=== PATIENT | female | born 1955 | race American Indian/Alaskan Native ===

== ENCOUNTER 2016-04-25 05:48 | Emergency (ER) | payer MEDICAID ==
[2016-04-25 06:23] VITALS: O2SAT 97
[2016-04-25] MEDS ORDERED: Oxycodone/Acetaminophen 5/325 mg Tab PO STA (08:01)
--- NOTE | 2016-04-25 08:07 | C.PDOC ---
History Of Present Illness 61 yo female with hx of RA c/o pain in bilateral shoulders, knees, and hands, with swelling to hands. pt stopped her meds for RA 3 weeks ago as a cleanse ( sulfasalazine, methotrexate, folic acid and weaned off prednisone). pt took 2 tabs Aleve last night with no improvement. pt denies fever and chills. Time Seen by Provider: 04/25/16 07:15 Chief Complaint (Nursing): Upper Extremity Problem/Injury History Per: Patient History/Exam Limitations: no limitations Current Symptoms Are (Timing): Still Present Quality: "Pain" Severity: Moderate Past Medical History Reviewed: Historical Data, Nursing Documentation, Vital Signs Vital Signs: Last Vital Signs Temp 97.8 F 04/25/16 06:14 Pulse 92 H 04/25/16 06:14 Resp 18 04/25/16 06:14 BP 155/91 H 04/25/16 06:14 Pulse Ox 97 04/25/16 08:11 - Medical History PMH: Rheumatoid Arthritis Surgical History: No Surg Hx Family History: States: Unknown Family Hx - Social History Hx Tobacco Use: Yes Hx Alcohol Use: Yes Hx Substance Use: No - Immunization History Hx Tetanus Toxoid Vaccination: No Hx Influenza Vaccination: Yes Hx Pneumococcal Vaccination: No Review Of Systems Constitutional: Negative for: Fever, Chills Cardiovascular: Negative for: Chest Pain Respiratory: Negative for: Cough, Shortness of Breath Gastrointestinal: Negative for: Nausea, Vomiting, Abdominal Pain Musculoskeletal: Positive for: Shoulder Pain, Arm Pain, Hand Pain, Other (knee pain) Skin: Negative for: Rash Neurological: Negative for: Weakness, Numbness Physical Exam - Physical Exam Appears: Non-toxic, Other (uncomfortable) Skin: Normal Color, Warm, Dry Head: Atraumatic, Normacephalic Neck: Normal Chest: Symmetrical, No Deformity, No Tenderness Cardiovascular: Rhythm Regular, No Murmur Respiratory: Normal Breath Sounds, No Rales, No Rhonchi, No Wheezing Gastrointestinal/Abdominal: Normal Exam, Bowel Sounds, Soft, No Tenderness Extremity: Other (decreased rom at both shoulders due to pain, b/l shoulder no swelling, no erythema. b/l hands tender to palpation, swelling to left 2nd finger. ) Neurological/Psych: Oriented x3, Normal Speech, Normal Cognition, Normal Motor, Normal Sensation ED Course And Treatment O2 Sat by Pulse Oximetry: 97 Progress Note: pt is feeling much better, able to ambulate. will d/c pt and she will comtact her club room attendant today. Reevaluation Time: 08:49 Medical Decision Making Medical Decision Makin61 y/o female with ra flare after cessation of medication 3 weeks ago. I had long discussion with patient about medication and need to discuss treatment plan with her club room attendant. pt plans to call her today for soonest appointment. Disposition Counseled Patient/Family Regarding: Diagnosis, Need For Followup - Disposition Disposition: HOME/ ROUTINE Disposition Time: 08:49 Condition: IMPROVED Additional Instructions: Please follow up with your club room attendant as soon as possible to discuss treatment options for your arthritis. Return to ER for any worsening symptoms. Forms: General Discharge Instructions, Work Excuse - Clinical Impression Clinical Impression: Flare of rheumatoid arthritis
[2016-04-25] MEDS ORDERED: Oxycodone/Acetaminophen 5/325 mg Tab ONE (08:09)
[2016-04-25 09:24] VITALS: BP 153/96; PULSE 77; RESP 16; TEMP 97.6
== END 2016-04-25 09:21 | disposition home or self-care (01) ==
LOC: C.ER 05:48
DX: M06.9 Rheumatoid arthritis, unspecified (principal)
CPT/HCPCS: 96372; 99285; J1885

== ENCOUNTER 2016-12-22 18:49 | Inpatient (IN) | payer SELFPAY ==
[2016-12-22] MEDS ORDERED: Albuterol-Ipratrop 3 mg / 0.5 (3 ml) UD INH STA (19:35)
[2016-12-22] MEDS ORDERED: Albuterol-Ipratrop 3 mg / 0.5 (3 ml) UD ONE ×2 (19:41→20:15)
[2016-12-22 19:54] LABS: BASO # 0.1 K/uL (0.0-0.2); BASO % 0.3 % (0.0-2.0); EOS # 0.3 K/uL (0.0-0.7); EOS % 1.5 % (0.0-4.0); HEMATOCRIT 42.3 % (34.0-47.0); LYMPH # 1.5 K/uL (1.0-4.3); MEAN CORPUSCULAR HEMOGLOBIN 30.4 pg (27.0-31.0); MEAN CORPUSCULAR HGB CONC 32.7 g/dL (33.0-37.0); MEAN PLATELET VOLUME 7.8 fL (7.2-11.7); MONO # 0.8 K/uL (0.0-0.8); MONO % 3.5 % (0.0-10.0); PLATELET COUNT 223 K/uL (130-400); RED CELL DISTRIBUTION WIDTH 16.8 % (11.5-14.5); WHITE BLOOD COUNT 22.2 K/uL (4.8-10.8)
[2016-12-22 20:14] LABS: ALKALINE PHOSPHATASE 84 U/L (38-126); ALT/SGPT 41 U/L (9-52); AST/SGOT 21 U/L (14-36); BLOOD UREA NITROGEN 12 mg/dL (7-17); CALCIUM 8.5 mg/dl (8.6-10.4); CHLORIDE 96 mmol/L (98-107); GLUCOSE,RANDOM 135 mg/dL (65-105); POTASSIUM 3.8 mmol/L (3.6-5.2)
[2016-12-22] MEDS ORDERED: Albuterol-Ipratrop 3 mg / 0.5 (3 ml) UD INH ONE (20:17)
[2016-12-22 20:24] LABS: ALB/GLOB RATIO 1.6 (1.0-2.1); CARBON DIOXIDE 27 mmol/L (22-30); GFR AFRICAN-AMERICAN > 60; SODIUM 132 mmol/L (132-148); TOTAL PROTEIN 6.4 g/dL (6.3-8.3)
[2016-12-22 20:41] LABS: RBC URINE 1 /hpf (0-3); URINE BILIRUBIN NEGATIVE (NEGATIVE); URINE BLOOD NEGATIVE (NEGATIVE); URINE COLOR Straw (YELLOW); URINE GLUCOSE (UA) NORMAL (Normal); URINE KETONE NEGATIVE (NEGATIVE); URINE LEUKOCYTE ESTERASE NEG Leu/uL (Negative); URINE PROTEIN NEGATIVE (NEGATIVE); URINE UROBILINOGEN NORMAL mg/dL (0.2-1.0); WBC URINE 1 /hpf (0-5)
[2016-12-22 20:58] LABS: EOSINOPHIL 1 % (0-4); NEUTROPHIL 88 % (50-75); TOTAL CELLS COUNTED 100
[2016-12-22] MEDS ORDERED: cefTRIAXone IV 1 gm in Dextros 50 ML IV ONE (21:25)
[2016-12-22] MEDS ORDERED: Azithromycin 500 MG in Sodium Chloride 0.9% 250 ML IV STA (21:25)
[2016-12-22] MEDS ORDERED: Iodixanol 320 MG/ML 100 ML BOTTLE IV ONE (21:48)
[2016-12-22] MEDS ORDERED: cefTRIAXone IV 1 gm in Dextros 50 ML IVPB ONE (22:31)
--- NOTE | 2016-12-22 22:43 | CT ---
EXAM: CT Angiography Chest With Intravenous Contrast CLINICAL HISTORY: 61 years old, female; Signs and symptoms; Cough; Cough with hemorrhage; Additional info: Hemoptysis, ? underlying pe/tb TECHNIQUE: Axial computed tomographic angiography images of the chest with intravenous contrast using pulmonary embolism protocol. All CT scans at this facility use one or more dose reduction techniques, viz.: automated exposure control; ma/kV adjustment per patient size (including targeted exams where dose is matched to indication; i.e. head); or iterative reconstruction technique. MIP reconstructed images were created and reviewed. Coronal and sagittal reformatted images were created and reviewed. CONTRAST: 100 mL of visipaque 320 administered intravenously. COMPARISON: No relevant prior studies available. FINDINGS: Pulmonary arteries: No pulmonary embolism. Aorta: No thoracic aortic aneurysm. Lungs: A paraspinous mass is detected within the right upper lobe (series 4, image 44) measuring 2.5 cm in medial to lateral dimension. An additional groundglass nodule is identified within the left upper lobe measuring 2.6 cm in greatest dimension. A satellite nodule is identified within the left upper lobe measuring 8 mm in greatest dimension (series 4, image 52). Comparison with prior imaging (not provided) is recommended. Pleural spaces: No significant effusion. No pneumothorax. Heart: No cardiomegaly. No significant pericardial effusion. No evidence of right heart dysfunction. Bones: No acute fracture. No lytic or blastic lesions are identified. Lymph nodes: Mediastinal lymphadenopathy is identified. The largest lymph node is within the right hilum measuring 15 mm in short axis dimension (series 3, image 50). A right breast prosthetic is present. IMPRESSION: No pulmonary embolism. Dominant mass within the right paraspinous position, measuring 2.5 cm in greatest dimension. Smaller satellite lesions are also noted within the left upper lobe. Mediastinal lymphadenopathy is also present.
--- NOTE | 2016-12-22 22:46 | C.PDOC ---
History Of Present Illness 61 y/o female presents to ED with complaints of hemoptysis for 1 day. Patient reports history of smoking and denies nausea, vomiting, chest pain or any other complaints at this time. Time Seen by Provider: 12/22/16 19:22 Chief Complaint (Nursing): Chest Pain History Per: Patient History/Exam Limitations: no limitations Onset/Duration Of Symptoms: Days Current Symptoms Are (Timing): Still Present Past Medical History Reviewed: Historical Data, Nursing Documentation, Vital Signs Vital Signs: Last Vital Signs Temp 97.9 F 12/22/16 23:53 Pulse 93 H 12/22/16 23:53 Resp 12 12/22/16 23:53 BP 173/82 H 12/22/16 23:53 Pulse Ox 97 12/22/16 23:53 - Medical History PMH: Rheumatoid Arthritis Surgical History: No Surg Hx Family History: States: No Known Family Hx - Social History Hx Tobacco Use: Yes Hx Alcohol Use: Yes Hx Substance Use: No - Immunization History Hx Tetanus Toxoid Vaccination: No Hx Influenza Vaccination: Yes Hx Pneumococcal Vaccination: No Review Of Systems Constitutional: Negative for: Fever, Chills Cardiovascular: Negative for: Chest Pain Respiratory: Positive for: Hemoptysis. Negative for: Shortness of Breath Gastrointestinal: Negative for: Nausea, Vomiting Skin: Negative for: Rash Physical Exam - Physical Exam Appears: Non-toxic, No Acute Distress, Other (morbidly obese) Skin: Warm, Dry, No Rash Head: Atraumatic, Normacephalic Oral Mucosa: Moist Throat: Normal, No Erythema, No Exudate Chest: Symmetrical Cardiovascular: Rhythm Regular Respiratory: No Rales, Rhonchi (scattered), Wheezing (scattered), Other ( moderate sob) Gastrointestinal/Abdominal: Soft, No Tenderness, No Guarding, No Rebound Neurological/Psych: Oriented x3, Normal Speech ED Course And Treatment - Laboratory Results Result Diagrams: 12/22/16 19:50 12/22/16 19:50 Lab Interpretation: Abnormal ECG: Interpreted By Me ECG Rhythm: Sinus Rhythm ECG Interpretation: Normal Rate From EC (BPM) O2 Sat by Pulse Oximetry: 96 (RA) Pulse Ox Interpretation: Normal - Radiology CXR: Interpreted by Me CXR Interpretation: Yes: Infiltrates (+RLL PNA) - CT Scan/US Angio Chest Other Rad Studies (CT/US): Interpreted By Me, Read By Radiologist CT/US Interpretation: IMPRESSION: No pulmonary embolism. Dominant mass within the right paraspinous position, measuring 2.5 cm in greatest dimension. Smaller satellite lesions are also noted within the left upper lobe. Mediastinal lymphadenopathy is. also present. Progress Note: linda manzano duonebs, solumedrol Reevaluation Time: 23:00 Reassessment Condition: Improved - Physician Consult Information Outcome Of Conversation: 2200: d/w Dr. June- Hospitalist, ok to admit after CTA chest. Medical Decision Making Medical Decision Making: on immunosuppresants for RA, no h/o lung CA, now with new hemoptysis probably related to R lung CA. Presumable pt on anti-TB prophylaxis for +PPD on anti-immunologics for RA. Disposition Doctor Will See Patient In The: Hospital Counseled Patient/Family Regarding: Studies Performed, Diagnosis - Disposition Disposition: HOSPITALIZED Disposition Time: 23:09 Condition: GOOD - Clinical Impression Clinical Impression: Hemoptysis, Lung cancer, COPD with lower respiratory infection - Scribe Statement The provider has reviewed the documentation as recorded by the Melanyibwesley Fitzpatrick All medical record entries made by the Melanyibwesley were at my direction and personally dictated by me. I have reviewed the chart and agree that the record accurately reflects my personal performance of the history, physical exam, medical decision making, and the department course for this patient. I have also personally directed, reviewed, and agree with the discharge instructions and disposition.
--- NOTE | 2016-12-22 23:25 | CP.PCM.HP ---
History of Present Illness - History of Present Illness History of Present Illness: CC: "Chest pain/coughing up blood" HPI: Patient is a 61 year old AA female, with PMHx of Rheumatoid arthritis, Latent TB , and right breast cancer with breast mastectomy, who presents to [facility] ED of productive cough/blood tinged sputum. Patient cough began one week ago, but became productive last night, when she had a coughing ft right before bed. She states she was producing a dark brown phlegm that had some streaks of blood in it. Patient reports she was able to go back to sleep again after the coughing fit but woke up today and had another fit this afternoon. She admits her chest feels tight and "sore" from all the coughing. She denies subjective fever, chills, night sweats, chest pain, palpitations, abdominal pain , nausea, vomiting, or diarrhea. She denies sick contacts or recent travel. Patient admits history of RA, diagnosed in 2015, for which she sees Dr. Warner. Patient states she has received three shots of RA medication Toclizumab that she self administers every 2 weeks. She also takes Methotrexate 2.5mg (4 pills weekly) which was reduced from 8 pills weekly within the last "two months." Pt also on prednisone 12.5mg (5 tabs x 2.5mg) for "over the past year," which also has been decreased. Her dinkey operator told her goal was to just be on Tocluzimab going forward. Patient also admits positive PPD, Quantiferon for which her PMD, Dr. Carreon, started her on isonaizid/pyridoxine in July 2016. PMHx: Rheumatoid Arthritis ( DX 2015), Latent TB (Diagnosed in 2016), Breat Ca ( Diagnosed 2005) Lumpectomy (2007) with Mastectomy in (2011) PSHx: Lumpectomy (2007) with radiation, Mastectomy (2011) Fam Hx: denies SHx: Tobacco - ~3/4 ppd x 20 yrs (quit 2 years ago); admits social alcohol usage ; denies illicit drugs Meds: Tocilizumab injection q2 wks, Methotrexate 2.5 mg 4 tabs weekly, Prednisone 2.5 mg x 5 tabs daily (has been on for > 1 year, tapering down), Isonaizid 300mg PO daily, Pyridoxine 50mg PO Daily PMD: Velma Breast Surgeon: Blade Boner: Sugar Present on Admission - Present on Admission Any Indicators Present on Admission: No Review of Systems - Constitutional Constitutional: absent: Chills, Fever - EENT Eyes: absent: Change in Vision Ears: absent: Decreased Hearing Nose/Mouth/Throat: absent: Sore Throat - Cardiovascular Cardiovascular: absent: Chest Pain, Dyspnea - Respiratory Respiratory: Cough (productive "brown sputum"), Hemoptysis, Chest Congestion, Pain with Coughing - Gastrointestinal Gastrointestinal: absent: Abdominal Pain, Nausea, Vomiting - Genitourinary Genitourinary: absent: Dysuria - Musculoskeletal Musculoskeletal: Arthralgias (hx RA), Joint Swelling (Thumb- left hand). absent : Numbness, Tingling - Integumentary Integumentary: absent: Dry Skin, Wounds - Neurological Neurological: absent: Numbness, Tingling, Weakness - Psychiatric Psychiatric: absent: Anxiety, Depression - Endocrine Endocrine: absent: Palpitations, Polydipsia, Polyphagia Past Patient History - Past Social History Smoking Status: Former Smoker - MUSCULOSKELETAL/RHEUMATOLOGICAL Hx Rheumatoid Arthritis: Yes - PSYCHIATRIC Hx Substance Use: No - SURGICAL HISTORY Hx Hysterectomy: Yes Hx Mastectomy: Yes (RIGHT BREAST) - ANESTHESIA Hx Anesthesia: Yes Hx Anesthesia Reactions: No Hx Malignant Hyperthermia: No Meds Allergies/Adverse Reactions: Allergies Allergy/AdvReac Type Severity Reaction Status Date / Time Penicillins AdvReac Verified 12/22/16 18:59 Physical Exam - Constitutional Appears: Non-toxic, No Acute Distress - Head Exam Head Exam: ATRAUMATIC, NORMAL INSPECTION - Eye Exam Eye Exam: EOMI. absent: Scleral icterus - ENT Exam ENT Exam: Mucous Membranes Moist - Neck Exam Neck exam: Negative for: Tenderness - Respiratory Exam Respiratory Exam: Rhonchi, Wheezes. absent: Accessory Muscle Use, Clear to Auscultation Bilateral - Cardiovascular Exam Cardiovascular Exam: REGULAR RHYTHM, +S1, +S2 - GI/Abdominal Exam GI & Abdominal Exam: Normal Bowel Sounds, Soft. absent: Tenderness - Extremities Exam Extremities exam: Positive for: normal inspection. Negative for: pedal edema, tenderness - Back Exam Back exam: absent: CVA tenderness (L), CVA tenderness (R) - Neurological Exam Neurological exam: Alert, CN II-XII Intact, Oriented x3 - Psychiatric Exam Psychiatric exam: Normal Affect, Normal Mood - Skin Skin Exam: Normal Color, Warm Results - Vital Signs Recent Vital Signs: Last Vital Signs Temp 98.3 F 12/22/16 18:57 Pulse 91 H 12/22/16 22:40 Resp 14 12/22/16 22:40 BP 150/81 12/22/16 22:40 Pulse Ox 96 12/22/16 23:14 - Labs Result Diagrams: 12/23/16 04:18 12/23/16 04:18 Labs: Laboratory Results - last 24 hr 12/22/16 12/22/16 12/22/16 19:50 19:50 19:50 WBC 22.2 H RBC 4.55 Hgb 13.8 Hct 42.3 MCV 93.0 D MCH 30.4 MCHC 32.7 L RDW 16.8 H Plt Count 223 D MPV 7.8 Neut % (Auto) 87.7 H Lymph % (Auto) 7.0 L Ferry % (Auto) 3.5 Eos % (Auto) 1.5 Baso % (Auto) 0.3 Neut # 19.5 H Lymph # 1.5 Ferry # 0.8 Eos # 0.3 Baso # 0.1 Neutrophils % (Manual) 88 H Lymphocytes % (Manual) 6 L Monocytes % (Manual) 5 Eosinophils % (Manual) 1 Platelet Estimate Normal Anisocytosis (manual) Slight PT 11.6 INR 1.0 APTT 27 Sodium 132 Potassium 3.8 Chloride 96 L Carbon Dioxide 27 Anion Gap 13 BUN 12 Creatinine 0.9 Est GFR ( Amer) > 60 Est GFR (Non-Af Amer) > 60 Random Glucose 135 H Calcium 8.5 L Total Bilirubin 1.0 AST 21 ALT 41 Alkaline Phosphatase 84 Troponin I < 0.0120 NT-Pro-B Natriuret Pep 456 Total Protein 6.4 Albumin 3.9 Globulin 2.5 Albumin/Globulin Ratio 1.6 Urine Color Urine Clarity Urine pH Ur Specific Lester Urine Protein Urine Glucose (UA) Urine Ketones Urine Blood Urine Nitrate Urine Bilirubin Urine Urobilinogen Ur Leukocyte Esterase Urine WBC (Auto) Urine RBC (Auto) Ur Squamous Epith Cells Influenza Typ A,B (EIA) 12/22/16 12/22/16 19:52 20:25 WBC RBC Hgb Hct MCV MCH MCHC RDW Plt Count MPV Neut % (Auto) Lymph % (Auto) Ferry % (Auto) Eos % (Auto) Baso % (Auto) Neut # Lymph # Ferry # Eos # Baso # Neutrophils % (Manual) Lymphocytes % (Manual) Monocytes % (Manual) Eosinophils % (Manual) Platelet Estimate Anisocytosis (manual) PT INR APTT Sodium Potassium Chloride Carbon Dioxide Anion Gap BUN Creatinine Est GFR ( Amer) Est GFR (Non-Af Amer) Random Glucose Calcium Total Bilirubin AST ALT Alkaline Phosphatase Troponin I NT-Pro-B Natriuret Pep Total Protein Albumin Globulin Albumin/Globulin Ratio Urine Color Straw Urine Clarity Clear Urine pH 6.0 Ur Specific Lester 1.006 Urine Protein Negative Urine Glucose (UA) Normal Urine Ketones Negative Urine Blood Negative Urine Nitrate Negative Urine Bilirubin Negative Urine Urobilinogen Normal Ur Leukocyte Esterase Neg Urine WBC (Auto) 1 Urine RBC (Auto) 1 Ur Squamous Epith Cells 1 Influenza Typ A,B (EIA) Negative for flu a/b Assessment & Plan - Assessment and Plan (Free Text) Plan: Hemoptysis Admit to tele Resp Isolation Dr. Sanches, ID, consulted: Dr. Pedro, Pulm, consulted: Pt denies night sweats, being treated for latent TB CT Angio (12/22/16): No pulm embolism. Dominant mass within right paraspinous position, 2.5 cm in greatest dimension. Smaller satellite lesions are also noted within the left upper lobe. Mediastinal lymphadenopathy. (see full report) Influenza: negative Duonebs Q6H PRN Azithromycin 500mg IV daily Ceftriaxone 1gm IV Daily - Methylprednisolone 125mg given once in ED Robitussin Q4H PRN cough f/u blood culture, sputum culture, f/u atypicals f/u AFB x 3, repeat Quantiferon Lung Mass with nodules CT Angio: No pulm embolism. Dominant mass within right paraspinous position, 2.5 cm in greatest dimension. Smaller satellite lesions are also noted within the left upper lobe. Mediastinal lymphadenopathy. (see full report) Pulm consult: Dr. Pedro, help appreciated - Will ask for advisement on biopsy Hx of Breast Cancer Diagnosed per pt in 2005 Lumpectomy with radiation (2005) Rightt breast mastectomy (2012) Denies hormone therapy (SERMs) Hem/Onc: [place] Latent TB Diagnosed in July 2016 by "blood test"/PPD Isoniazid 300mg PO Daily Pyridoxone 50mg PO Daily Rheumatoid Arthritis Continue Home meds: Prednisone 12.5mg PO daily Home Blade Boner: Sugar Elevated BP in ED Max 173/82 Pt denies hx of HTN Monitor, consider AILYN/ARB if persistent Elevated Blood glucose Pt w long history of Prednisone usage (started in July of 2015 per pt) f/u A1C Prophylaxis Protonix 40mg IV Daily SCDs Heparin 5000u Q8H Raphael Gilbert PGY-2 Discussed with software business analyst, Dr. June
[2016-12-22] MEDS ORDERED: Albuterol-Ipratrop 3 mg / 0.5 (3 ml) UD INH PRN (23:48)
[2016-12-23 04:44] LABS: HEMATOCRIT 41.5 % (34.0-47.0); LYMPH # 0.6 K/uL (1.0-4.3); LYMPH % 2.7 % (20.0-40.0); MEAN CELL VOLUME 93.1 fL (81.0-99.0); MEAN CORPUSCULAR HEMOGLOBIN 30.2 pg (27.0-31.0); MEAN CORPUSCULAR HGB CONC 32.4 g/dL (33.0-37.0); MONO # 0.1 K/uL (0.0-0.8); MONO % 0.5 % (0.0-10.0); PLATELET COUNT 216 K/uL (130-400); RED CELL DISTRIBUTION WIDTH 16.8 % (11.5-14.5)
[2016-12-23 04:58] LABS: AST/SGOT 26 U/L (14-36)
[2016-12-23 04:59] LABS: ALKALINE PHOSPHATASE 77 U/L (38-126); ALT/SGPT 38 U/L (9-52); BILIRUBIN,TOTAL 0.4 mg/dL (0.2-1.3); BLOOD UREA NITROGEN 13 mg/dL (7-17); CALCIUM 8.5 mg/dl (8.6-10.4); CARBON DIOXIDE 26 mmol/L (22-30); CHLORIDE 98 mmol/L (98-107); GFR AFRICAN-AMERICAN > 60; GLUCOSE,RANDOM 245 mg/dL (65-105); MAGNESIUM 1.8 mg/dL (1.6-2.3); PHOSPHOROUS 2.9 mg/dL (2.5-4.5); POTASSIUM 3.9 mmol/L (3.6-5.2); SODIUM 136 mmol/L (132-148); TOTAL PROTEIN 7.2 g/dL (6.3-8.3)
[2016-12-23] MEDS: guaiFENesin 100 mg/5 ml Syrup UD PO PRN ×2 (05:14→09:43)
[2016-12-23] MEDS ORDERED: guaiFENesin 100 mg/5 ml Syrup UD ONE (05:15)
--- NOTE | 2016-12-23 06:36 | CP.PCM.PN ---
Subjective - Date & Time of Evaluation Date of Evaluation: 12/22/16 Time of Evaluation: 22:00 - Subjective Subjective: Assessment * Right para spinal consolidation vs tumor (as no typical air bronchograms noticed), other areas of bronchiatasis, presented with cough and hemoptysis * H/o tobacco abuse * RA on methotrexate, 10mg/wk, prednisone 12.5mg/d, anti IL3 MAB * H/o breast cancer with mastectomy and radiation no chemo in 2010 Plan * Continue prednisone * Rocephin, zithromax * IR consult for possible biopsy now or later( within 1-2wks) * D/w patients oncologist details of breast cancer and current finding * Pulmonary consult * See orders for detail. Objective - Vital Signs/Intake and Output Vital Signs (last 24 hours): Temp Pulse Resp BP Pulse Ox 97.9 F 90 18 170/92 H 98 12/22/16 23:53 12/23/16 06:25 12/23/16 06:25 12/23/16 06:25 12/23/16 06:25 - Medications Medications: Current Medications Albuterol/Ipratropium (Duoneb 3 Mg/0.5 Mg (3 Ml) Ud) 3 ml INH RQ6 PRN PRN Reason: Shortness of Breath Guaifenesin (Robitussin) 100 mg PO Q4H PRN PRN Reason: Cough Last Admin: 12/23/16 05:14 Dose: 100 mg Heparin Sodium (Porcine) (Heparin) 5,000 units SC Q8 EDMUNDO Last Admin: 12/23/16 06:24 Dose: 5,000 units Azithromycin 500 mg/ Sodium (Chloride) 250 mls @ 250 mls/hr IVPB DAILY EDMUNDO Ceftriaxone Sodium (Rocephin Iv 1 Gm Duplex) 50 mls @ 100 mls/hr IVPB DAILY [facility] Isoniazid (Niazid) 300 mg PO DAILY EDMUNDO Pantoprazole Sodium (Protonix Inj) 40 mg IVP DAILY [facility] Prednisone (Prednisone) 12.5 mg PO DAILY EDMUNDO Pyridoxine HCl (Vitamin B6 50 Mg Tab) 50 mg PO DAILY EDMUNDO - Labs Labs: 12/23/16 04:18 12/23/16 04:18 PT 11.6 SECONDS (9.7-12.2) 12/22/16 19:50 INR 1.0 12/22/16 19:50 APTT 27 SECONDS (21-34) 12/22/16 19:50
[2016-12-23 06:42] LABS: NEUTROPHIL 96 % (50-75); TOTAL CELLS COUNTED 100
--- NOTE | 2016-12-23 08:10 | RAD ---
PROCEDURE: CHEST RADIOGRAPH, 1 VIEW HISTORY: Shortness of breath COMPARISON: None available. FINDINGS: LUNGS: Mild venous congestion. Prominent bibasilar breast shadows. Questionable patchy increased markings at the lung bases with question blunting of the left costophrenic angle which may represent a small pleural effusion. Correlation with lateral view is recommended for further evaluation if clinically indicated. Right hilar prominence. PLEURA: As above. CARDIOVASCULAR: Normal. OSSEOUS STRUCTURES: No significant abnormalities. VISUALIZED UPPER ABDOMEN: Normal. OTHER FINDINGS: None. IMPRESSION: Mild venous congestion. Prominent bibasilar breast shadows. Questionable patchy increased markings at the lung bases with question blunting of the left costophrenic angle which may represent a small pleural effusion. Correlation with lateral view is recommended for further evaluation if clinically indicated. Right hilar prominence.
--- NOTE | 2016-12-23 09:14 | CP.PCM.PN ---
<Ana Skaggs V - Last Filed: 12/23/16 09:15> Subjective - Date & Time of Evaluation Date of Evaluation: 12/23/16 Time of Evaluation: 09:10 Objective - Vital Signs/Intake and Output Vital Signs (last 24 hours): Temp Pulse Resp BP Pulse Ox 97.9 F 77 18 170/92 H 99 12/22/16 23:53 12/23/16 06:58 12/23/16 06:25 12/23/16 06:25 12/23/16 06:58 Intake and Output: 12/23/16 12/23/16 06:59 18:59 Output Total 0 Balance 0 - Medications Medications: Current Medications Albuterol/Ipratropium (Duoneb 3 Mg/0.5 Mg (3 Ml) Ud) 3 ml INH RQ6 PRN PRN Reason: Shortness of Breath Guaifenesin (Robitussin) 100 mg PO Q4H PRN PRN Reason: Cough Last Admin: 12/23/16 05:14 Dose: 100 mg Heparin Sodium (Porcine) (Heparin) 5,000 units SC Q8 EDMUNDO Last Admin: 12/23/16 06:24 Dose: 5,000 units Azithromycin 500 mg/ Sodium (Chloride) 250 mls @ 250 mls/hr IVPB DAILY [facility] Ceftriaxone Sodium (Rocephin Iv 1 Gm Duplex) 50 mls @ 100 mls/hr IVPB DAILY [facility] Isoniazid (Niazid) 300 mg PO DAILY [facility] Pantoprazole Sodium (Protonix Inj) 40 mg IVP DAILY [facility] Prednisone (Prednisone) 12.5 mg PO DAILY [facility] Pyridoxine HCl (Vitamin B6 50 Mg Tab) 50 mg PO DAILY [facility] - Labs Labs: 12/23/16 04:18 12/23/16 04:18 PT 11.6 SECONDS (9.7-12.2) 12/22/16 19:50 INR 1.0 12/22/16 19:50 APTT 27 SECONDS (21-34) 12/22/16 19:50 Assessment and Plan (1) Hemoptysis Assessment & Plan: Etiologies: lung mass vs tuberculosis vs bronchiestasis Concern for tuberculosis given patient has hx of latent tuberculosis was on INH ; on immunosuppression for Rheumatoid arthritis therapy vs cancer given patient history of breast cancer Pulmonary (Dr. Pedro) on board hematology-oncology (Dr. Tylor Koenig)-->will get in touch with patient's heme-onc, Dr Griggs Infectious Disease (Dr. Sanches)-->who sees patient as outpatient On respiratory isolation, ordered for AFB X3 per PMD's office, prior hx of PPD+ and Quantaferon positive on 06/21/16 Status: Acute (2) Lung mass Assessment & Plan: Pulmonary (Dr. Pedro) on board-->help appreciated CT Chest (12/22/16): no pulmonary embolism, Dominant mass with the right paraspinous position, measuring 2.5cm in greast dimension. Smaller satellite lesions are note within the left upper love. Medistinal lymphadenopathy is also present Chest Xray (12/23/16): mild venous congestion. Prominent bibasilar breast shadows. Questionable patchy increased makrings at the lung bases w questoina blunting of the left costophrenic angle which may represent a small pleural effusion. Spoke with [place] [facility] staff; patient had a prior chest xray 06/30/16 which showed no acute cardiopulmonary pathology Status: Acute (3) History of rheumatoid arthritis Assessment & Plan: Patient is on immunosuppresive therapy as outpatient; will need to follow-up with mortgage coordinator in hospital patient is off MTX. Patient has had tapering off prednisone over one year Status: Acute (4) Latent tuberculosis Assessment & Plan: History of +PPD and Quantaferon on 06/21/16 per discussion with office staff at [facility]. Patient put on Respiratory isolation. Given patient's hemotypsis and immunosuppression for treatment of RA, concern if this is active tuberculosis. Ordered for Sputum AFB X3 Patient was previously taking Isonazid. Patient sees Dr. Sanches ([facility]) as outpatient Status: Acute (5) Breast cancer Assessment & Plan: History of Breast Cancer Patient sees Dr. Griggs (heme-onc) as outpatient. Unclear what type of breast cancer or what the surveillance. Status: Chronic (6) Leukocytosis Assessment & Plan: Blood cultures (12/22): received-->pending Patient placed on respiratory isolation as preventive: patient with hx of breast cancer, hx of rheumatoid arthritis who is on immunosuppresive therapy, hx of latent tuberculosis Patient has been tapered of steroid for the past year Order for procalcitonin Status: Acute (7) Prophylactic measure Assessment & Plan: Attempted to call PMD: Dr. Carreon; wont be available until Monday ([facility]) held chemical anticoagulation given patient comes in with hemotypsis Status: Acute <Herve Brink Aimee - Last Filed: 12/23/16 18:29> Subjective - Subjective Subjective: PGY-[address] Skaggs. No acute events noted overnight. Patient seen and examined in ICU. Patient is on airborne respiratory isolation. She stated she had a mild non-productive cough which has much improved. She also stated she's had a chronic sinus headache that's been refractive to OTC flonase. She denied other symptoms. She denied chest pain, shortness of breath, abdominal pain, fevers, chills, nausea, vomiting. Objective - Vital Signs/Intake and Output Vital Signs (last 24 hours): Temp Pulse Resp BP Pulse Ox 97.9 F 78 18 170/92 H 99 12/22/16 23:53 12/23/16 08:00 12/23/16 06:25 12/23/16 06:25 12/23/16 06:58 Intake and Output: 12/23/16 12/23/16 06:59 18:59 Output Total 0 Balance 0 - Medications Medications: Current Medications Albuterol/Ipratropium (Duoneb 3 Mg/0.5 Mg (3 Ml) Ud) 3 ml INH RQ6 PRN PRN Reason: Shortness of Breath Guaifenesin (Robitussin) 100 mg PO Q4H PRN PRN Reason: Cough Last Admin: 12/23/16 09:43 Dose: 100 mg Heparin Sodium (Porcine) (Heparin) 5,000 units SC Q8 [facility] Last Admin: 12/23/16 13:21 Dose: 5,000 units Azithromycin 500 mg/ Sodium (Chloride) 250 mls @ 250 mls/hr IVPB DAILY [facility] Last Admin: 12/23/16 09:48 Dose: 250 mls/hr Ceftriaxone Sodium (Rocephin Iv 1 Gm Duplex) 50 mls @ 100 mls/hr IVPB DAILY [facility] Last Admin: 12/23/16 11:00 Dose: 100 mls/hr Isoniazid (Niazid) 300 mg PO DAILY [facility] Last Admin: 12/23/16 09:43 Dose: 300 mg Pantoprazole Sodium (Protonix Inj) 40 mg IVP DAILY [facility] Last Admin: 12/23/16 09:43 Dose: 40 mg Prednisone (Prednisone) 2.5 mg PO DAILY [facility] Last Admin: 12/23/16 14:17 Dose: 2.5 mg Prednisone (Prednisone Tab) 10 mg PO DAILY [facility] Last Admin: 12/23/16 14:16 Dose: 10 mg Pyridoxine HCl (Vitamin B6 50 Mg Tab) 50 mg PO DAILY [facility] Last Admin: 12/23/16 14:17 Dose: 50 mg - Labs Labs: 12/23/16 04:18 12/23/16 04:18 PT 11.6 SECONDS (9.7-12.2) 12/22/16 19:50 INR 1.0 12/22/16 19:50 APTT 27 SECONDS (21-34) 12/22/16 19:50 - Additional Findings Additional findings: - Constitutional Appears: Non-toxic, No Acute Distress - Head Exam Head Exam: ATRAUMATIC, NORMAL INSPECTION - Eye Exam Eye Exam: EOMI. absent: Scleral icterus - ENT Exam ENT Exam: Mucous Membranes Moist - Neck Exam Neck exam: Negative for: Tenderness - Respiratory Exam Respiratory Exam: Rhonchi, Wheezes. absent: Accessory Muscle Use, Clear to Auscultation Bilateral - Cardiovascular Exam Cardiovascular Exam: REGULAR RHYTHM, +S1, +S2 - GI/Abdominal Exam GI & Abdominal Exam: Normal Bowel Sounds, Soft. absent: Tenderness - Extremities Exam Extremities exam: Positive for: normal inspection. Negative for: pedal edema, tenderness - Back Exam Back exam: absent: CVA tenderness (L), CVA tenderness (R) - Neurological Exam Neurological exam: Alert, CN II-XII Intact, Oriented x3 - Psychiatric Exam Psychiatric exam: Normal Affect, Normal Mood - Skin Skin Exam: Normal Color, Warm Assessment and Plan - Assessment and Plan (Free Text) Assessment: (1) Hemoptysis Assessment & Plan: Etiologies: lung mass vs tuberculosis vs bronchiestasis Concern for tuberculosis given patient has hx of latent tuberculosis was on INH ; on immunosuppression for Rheumatoid arthritis therapy vs cancer given patient history of breast cancer Pulmonary (Dr. Pedro) on board hematology-oncology (Dr. Tylor Koenig)-->will get in touch with patient's heme-onc, Dr Griggs Infectious Disease (Dr. Sanches)-->who sees patient as outpatient On respiratory isolation, ordered for AFB X3 per PMD's office, prior hx of PPD+ and Quantaferon positive on 06/21/16 HIV Screen Negative Influenza Negative Legionella Negative Procalcitonin 0.06 (low) F/U mycoplasma pneumoniae Ab F/U Blood culture F/U fungus culture Sputum gram stain 12/23 shows few polymorphonuclear WBCs, no organisms seen F/U Sputum culture Status: Acute (2) Lung mass Assessment & Plan: Pulmonary (Dr. Pedro) on board-->help appreciated CT Chest (12/22/16): no pulmonary embolism, Dominant mass with the right paraspinous position, measuring 2.5cm in greast dimension. Smaller satellite lesions are note within the left upper lobe. Mediastinal lymphadenopathy is also present Chest Xray (12/23/16): mild venous congestion. Prominent bibasilar breast shadows. Questionable patchy increased markings at the lung bases w question blunting of the left costophrenic angle which may represent a small pleural effusion. Spoke with [place] [facility] staff; patient had a prior chest xray 06/30/16 which showed no acute cardiopulmonary pathology IR for CT-guided biopsy Status: Acute (3) History of rheumatoid arthritis Assessment & Plan: Patient is on immunosuppresive therapy as outpatient; will need to follow-up with mortgage coordinator in hospital patient is off MTX. Patient has had tapering off prednisone over one year Status: Acute (4) Latent tuberculosis Assessment & Plan: History of +PPD and Quantaferon on 06/21/16 per discussion with office staff at [facility]. Patient put on Respiratory isolation. Given patient's hemotypsis and immunosuppression for treatment of RA, concern if this is active tuberculosis. Ordered for Sputum AFB X3 Patient was previously taking Isonazid. Patient sees Dr. Sanches ([facility]) as outpatient F/U Quantiferon TB Gold Status: Acute (5) Breast cancer Assessment & Plan: History of Breast Cancer Patient sees Dr. Griggs (heme-onc) as outpatient. Unclear what type of breast cancer or what the surveillance. F/U CT Abd/Pelvis with PO and IV contrast, rule out metastasis F/U MRI Brain w/wo contrast to rule out metastasis (patient with sinus headaches for >1 year) Status: Chronic (6) Leukocytosis Assessment & Plan: Blood cultures (12/22): received-->pending Patient placed on respiratory isolation as preventive: patient with hx of breast cancer, hx of rheumatoid arthritis who is on immunosuppresive therapy, hx of latent tuberculosis Patient has been tapered of steroid for the past year Procalcitonin 0.06 (low) Status: Acute (7) Prophylactic measure Assessment & Plan: Attempted to call PMD: Dr. Carreon; wont be available until Monday ([facility]) held chemical anticoagulation given patient comes in with hemotypsis Status: Acute
[2016-12-23] MEDS: Azithromycin 500 MG in Sodium Chloride 0.9% 250 ML IVPB SCH (09:48)
--- NOTE | 2016-12-23 10:10 | CARD ---
APPROVED REPORT EKG Measurement Heart [id number] <Conclusion> Normal sinus rhythm Nonspecific ST and T wave abnormality Abnormal ECG
[2016-12-23] MEDS: cefTRIAXone IV 1 gm in Dextros 50 ML IVPB SCH (11:00)
--- NOTE | 2016-12-23 14:39 | CP.PCM.CON ---
History of Present Illness - History of Present Illness History of Present Illness: 61 year old female, with PMHx of Rheumatoid arthritis, Latent TB, and right breast cancer with breast mastectomy, presents to [facility] ED of productive cough/blood tinged sputum. . She states she was producing a dark brown phlegm that had some streaks of blood in it. . She denies sick contacts or recent travel. Patient admits history of RA, diagnosed in 2015,and has received three shots of RA medication Toclizumab that she self administers every 2 weeks. She also takes Methotrexate 2.5mg (4 pills weekly) and is also on prednisone 12.5mg Patient also admits positive PPD, Quantiferon for which her PMD, Dr. Carreon, started her on isonaizid/pyridoxine in July 2016. PMHx: Rheumatoid Arthritis ( DX 2015), Latent TB (Diagnosed in 2016), Breat Ca ( Diagnosed 2005) Lumpectomy (2007) with Mastectomy in (2011) PSHx: Lumpectomy (2007) with radiation, Mastectomy (2011) Fam Hx: denies SHx: Tobacco - ~3/4 ppd x 20 yrs (quit 2 years ago); admits social alcohol usage ; denies illicit drugs Meds: Tocilizumab injection q2 wks, Methotrexate 2.5 mg 4 tabs weekly, Prednisone 2.5 mg x 5 tabs daily (has been on for > 1 year, tapering down), Isonaizid 300mg PO daily, Pyridoxine 50mg PO Daily Review of Systems - Constitutional Constitutional: As Per HPI - EENT Eyes: absent: As Per HPI, Blind Spots, Blurred Vision, Change in Vision, Decreased Night Vision, Diplopia, Discharge, Dry Eye, Exophthalmos, Floaters, Irritation, Itchy Eyes, Loss of Peripheral Vision, Pain, Photophobia, Requires Corrective Lenses, Sees Flashes, Spots in Vision, Tunnel Vision, Other Visual Disturbances, Loss of Vision, Other Ears: absent: As Per HPI, Decreased Hearing, Ear Discharge, Ear Pain, Tinnitus, Abnormal Hearing, Disequilibrium, Dizziness, Other Nose/Mouth/Throat: absent: As Per HPI, Epistaxis, Nasal Congestion, Nasal Discharge, Nasal Obstruction, Nasal Trauma, Nose Pain, Post Nasal Drip, Sinus Pain, Sinus Pressure, Bleeding Gums, Change in Voice, Dental Pain, Dry Mouth, Dysphagia, Halitosis, Hoarsness, Lip Swelling, Mouth Lesions, Mouth Pain, Odynophagia, Sore Throat, Throat Swelling, Tongue Swelling, Facial Pain, Neck Pain, Neck Mass, Other - Cardiovascular Cardiovascular: absent: As Per HPI, Acrocyanosis, Chest Pain, Chest Pain at Rest , Chest Pain with Activity, Claudication, Diaphoresis, Dyspnea, Dyspnea on Exertion, Edema, Irregular Heart Rhythm, Pain Radiating to Arm/Neck/Jaw, Leg Edema, Leg Ulcers, Lightheadedness, Orthopnea, Palpitations, Paroxysmal Nocturnal Dyspnea, Pedal Edema, Radiating Pain, Rapid Heart Rate, Slow Heart Rate, Syncope, Other - Respiratory Respiratory: As Per HPI, Cough, Dyspnea, Hemoptysis - Gastrointestinal Gastrointestinal: absent: As Per HPI, Abdominal Pain, Belching, Bloating, Change in Bowel Habits, Change in Stool Character, Coffee Ground Emesis, Constipation, Cramping, Diarrhea, Dyspepsia, Dysphagia, Early Satiety, Excessive Flatus, Fecal Incontinence, Heartburn, Hematemesis, Hematochezia, Loose Stools, Melena, Nausea, Odynophagia, Temesmus, Vomiting, Other - Genitourinary Genitourinary: absent: As Per HPI, Change in Urinary Stream, Difficulty Urinating, Dysuria, Flank Pain, Hematuria, Pyuria, Nocturia, Urinary Incontinence, Urinary Frequency, Urinary Hesitance, Urinary Urgency, Voiding Freq/Small Amts, Freq UTI, Hx Renal/Bladder Calculi, Hx /Renal Surgery, Bladder Distension, Other - Reproductive: Female Reproductive:Female: absent: As Per HPI, Amenorrhea, Amenorrhea/ Control, Currently Menstual, Cycle <21 Days, Cycle >35 Days, Cycle Variable, Menses 1-7 Days, Menses >/= 8 Days, Menses Variable, Cycle > 4 Weeks Between, No Menses for 6 Months, Heavy Menses, Light Menses, Normal Menses, Spotting Between Cycles , S/P Hysterectomy, Menopausal, Post Menopausal, Premenarche, Abnormal Vaginal Bleeding, Dysmenorrhea, Dyspareunia, Genital Lesions, Genital Pruritis, Pelvic Pain, Prolapse Symptoms, Sexual Dysfunction, Vaginal Discharge, Vaginal Dryness , Vaginal Odor, Vaginal Pruritis, Other - Menstruation Menstruation: absent: As Per HPI, Amenorrhea, Amenorrhea/ Control, Currently Menstual, Cycle <21 Days, Cycle >35 Days, Cycle Variable, Menses 1-7 Days, Menses >/= 8 Days, Menses Variable, Cycle > 4 Weeks Between, No Menses for 6 Months, Heavy Menses, Light Menses, Normal Menses, Spotting Between Cycles , S/P Hysterectomy, Menopausal, Post Menopausal, Premenarche, Abnormal Vaginal Bleeding, Dysmenorrhea, Other - Musculoskeletal Musculoskeletal: As Per HPI - Integumentary Integumentary: absent: As Per HPI, Acne, Alopecia, Bleeding Lesions, Change in Hair, Change in Nails, Change in Pigmentation, Changing Lesions, Dry Skin, Erythema, Furuncle, Hirsutism, Lesions, New Lesions, Non-Healing Lesions, Photosensitivity, Pruritus, Rash, Skin Pain, Skin Ulcer, Sores, Striae, Swelling , Unusual Bruising, Wounds, Jaundice, Other - Neurological Neurological: absent: As Per HPI, Abnormal Gait, Abnormal Hearing, Abnormal Movements, Abnormal Speech, Behavioral Changes, Burning Sensations, Confusion, Convulsions, Disequilibrium, Dizziness, Numbness, Focal Weakness, Frequent Falls , Headaches, Lack of Coordination, Loss of Vision, Memory Loss, Paresthesias, Radicular Pain, Restless Legs, Sensory Deficit, Syncope, Tingling, Tremor, Vertigo, Weakness, Other Visual Disturbances, Other - Psychiatric Psychiatric: absent: As Per HPI, Abnormal Sleep Pattern, Anhedonia, Anxiety, Auditory Hallucinations, Behavioral Changes, Change in Appetite, Change in Libido, Confusion, Depression, Difficulty Concentrating, Hallucinations, Homicidal Ideation, Hopelessness, Irritability, Memory Loss, Mood Swings, Panic Attacks, Paranoia, Suicidal Ideation, Visual Hallucinations, Tactile Hallucinations, Other - Endocrine Endocrine: absent: As Per HPI, Change in Body Appearance, Change in Libido, Cold Intolorance, Deepening of Voice, Excessive Sweating, Fatigue, Flushing, Heat Intolorance, Increase in Ring/Shoe/Hat Size, Palpitations, Polydipsia, Polyphagia, Polyuria, Other - Hematologic/Lymphatic Hematologic: absent: As Per HPI, Easy Bleeding, Easy Bruising, Lymphadenopathy, Other Past Patient History - Past Social History Smoking Status: Former Smoker - CARDIAC Hx Cardiac Disorders: No - PULMONARY Hx Respiratory Disorders: Yes Other/Comment: seasonal/pollen allergies - NEUROLOGICAL Hx Neurological Disorder: No - HEENT Hx HEENT Problems: No - RENAL Hx Chronic Kidney Disease: No - ENDOCRINE/METABOLIC Hx Endocrine Disorders: No - HEMATOLOGICAL/ONCOLOGICAL Hx Blood Disorders: No - INTEGUMENTARY Hx Dermatological Problems: No - MUSCULOSKELETAL/RHEUMATOLOGICAL Hx Rheumatoid Arthritis: Yes - GASTROINTESTINAL Hx Gastrointestinal Disorders: No - GENITOURINARY/GYNECOLOGICAL Hx Genitourinary Disorders: No - PSYCHIATRIC Hx Substance Use: No - SURGICAL HISTORY Hx Hysterectomy: Yes Hx Mastectomy: Yes (RIGHT BREAST) - ANESTHESIA Hx Anesthesia: Yes Hx Anesthesia Reactions: No Hx Malignant Hyperthermia: No Meds Allergies/Adverse Reactions: Allergies Allergy/AdvReac Type Severity Reaction Status Date / Time Penicillins AdvReac Verified 12/22/16 18:59 - Medications Medications: Current Medications Albuterol/Ipratropium (Duoneb 3 Mg/0.5 Mg (3 Ml) Ud) 3 ml INH RQ6 PRN PRN Reason: Shortness of Breath Guaifenesin (Robitussin) 100 mg PO Q4H PRN PRN Reason: Cough Last Admin: 12/23/16 09:43 Dose: 100 mg Heparin Sodium (Porcine) (Heparin) 5,000 units SC Q8 [facility] Last Admin: 12/23/16 13:21 Dose: 5,000 units Azithromycin 500 mg/ Sodium (Chloride) 250 mls @ 250 mls/hr IVPB DAILY [facility] Last Admin: 12/23/16 09:48 Dose: 250 mls/hr Ceftriaxone Sodium (Rocephin Iv 1 Gm Duplex) 50 mls @ 100 mls/hr IVPB DAILY [facility] Last Admin: 12/23/16 11:00 Dose: 100 mls/hr Isoniazid (Niazid) 300 mg PO DAILY [facility] Last Admin: 12/23/16 09:43 Dose: 300 mg Pantoprazole Sodium (Protonix Inj) 40 mg IVP DAILY [facility] Last Admin: 12/23/16 09:43 Dose: 40 mg Prednisone (Prednisone) 2.5 mg PO DAILY [facility] Last Admin: 12/23/16 14:17 Dose: 2.5 mg Prednisone (Prednisone Tab) 10 mg PO DAILY [facility] Last Admin: 12/23/16 14:16 Dose: 10 mg Pyridoxine HCl (Vitamin B6 50 Mg Tab) 50 mg PO DAILY [facility] Last Admin: 12/23/16 14:17 Dose: 50 mg Physical Exam - Constitutional Appears: Non-toxic, Chronically Ill - Head Exam Head Exam: NORMOCEPHALIC - Eye Exam Eye Exam: PERRL - ENT Exam ENT Exam: Mucous Membranes Dry - Neck Exam Neck exam: Negative for: Lymphadenopathy - Respiratory Exam Respiratory Exam: Decreased Breath Sounds, Clear to Auscultation Bilateral - Cardiovascular Exam Cardiovascular Exam: REGULAR RHYTHM - GI/Abdominal Exam GI & Abdominal Exam: Diminished Bowel Sounds, Soft. absent: Tenderness - Rectal Exam Rectal Exam: Deferred - Exam Exam: NORMAL INSPECTION - Extremities Exam Extremities exam: Negative for: pedal edema - Back Exam Back exam: absent: CVA tenderness (L), CVA tenderness (R) - Neurological Exam Neurological exam: Alert, CN II-XII Intact, Oriented x3, Reflexes Normal - Psychiatric Exam Psychiatric exam: Depressed - Skin Skin Exam: Dry, Intact Results - Vital Signs Recent Vital Signs: Last Vital Signs Temp 97.9 F 12/22/16 23:53 Pulse 78 12/23/16 08:00 Resp 18 12/23/16 06:25 BP 170/92 H 12/23/16 06:25 Pulse Ox 99 12/23/16 06:58 - Labs Result Diagrams: 12/23/16 04:18 12/23/16 04:18 Labs: Laboratory Results - last 24 hr 12/22/16 12/22/16 12/22/16 19:50 19:50 19:50 WBC 22.2 H RBC 4.55 Hgb 13.8 Hct 42.3 MCV 93.0 D MCH 30.4 MCHC 32.7 L RDW 16.8 H Plt Count 223 D MPV 7.8 Neut % (Auto) 87.7 H Lymph % (Auto) 7.0 L [place] % (Auto) 3.5 Eos % (Auto) 1.5 Baso % (Auto) 0.3 Neut # 19.5 H Lymph # 1.5 [place] # 0.8 Eos # 0.3 Baso # 0.1 Neutrophils % (Manual) 88 H Band Neutrophils % Lymphocytes % (Manual) 6 L Monocytes % (Manual) 5 Eosinophils % (Manual) 1 Toxic Granulation Platelet Estimate Normal Anisocytosis (manual) Slight PT 11.6 INR 1.0 APTT 27 Sodium 132 Potassium 3.8 Chloride 96 L Carbon Dioxide 27 Anion Gap 13 BUN 12 Creatinine 0.9 Est GFR ( Amer) > 60 Est GFR (Non-Af Amer) > 60 Random Glucose 135 H Hemoglobin A1c Calcium 8.5 L Phosphorus Magnesium Total Bilirubin 1.0 AST 21 ALT 41 Alkaline Phosphatase 84 Troponin I < 0.0120 NT-Pro-B Natriuret Pep 456 Total Protein 6.4 Albumin 3.9 Globulin 2.5 Albumin/Globulin Ratio 1.6 Urine Color Urine Clarity Urine pH Ur Specific [place] Urine Protein Urine Glucose (UA) Urine Ketones Urine Blood Urine Nitrate Urine Bilirubin Urine Urobilinogen Ur Leukocyte Esterase Urine WBC (Auto) Urine RBC (Auto) Ur Squamous Epith Cells HIV 1&2 Antibody Screen Influenza Typ A,B (EIA) Ur L.pneumophila Ag 12/22/16 12/22/16 12/23/16 19:52 20:25 04:18 WBC RBC Hgb Hct MCV MCH MCHC RDW Plt Count MPV Neut % (Auto) Lymph % (Auto) [place] % (Auto) Eos % (Auto) Baso % (Auto) Neut # Lymph # [place] # Eos # Baso # Neutrophils % (Manual) Band Neutrophils % Lymphocytes % (Manual) Monocytes % (Manual) Eosinophils % (Manual) Toxic Granulation Platelet Estimate Anisocytosis (manual) PT INR APTT Sodium Potassium Chloride Carbon Dioxide Anion Gap BUN Creatinine Est GFR ( Amer) Est GFR (Non-Af Amer) Random Glucose Hemoglobin A1c 6.3 Calcium Phosphorus Magnesium Total Bilirubin AST ALT Alkaline Phosphatase Troponin I NT-Pro-B Natriuret Pep Total Protein Albumin Globulin Albumin/Globulin Ratio Urine Color Straw Urine Clarity Clear Urine pH 6.0 Ur Specific [place] 1.006 Urine Protein Negative Urine Glucose (UA) Normal Urine Ketones Negative Urine Blood Negative Urine Nitrate Negative Urine Bilirubin Negative Urine Urobilinogen Normal Ur Leukocyte Esterase Neg Urine WBC (Auto) 1 Urine RBC (Auto) 1 Ur Squamous Epith Cells 1 HIV 1&2 Antibody Screen Influenza Typ A,B (EIA) Negative for flu a/b Ur L.pneumophila Ag 12/23/16 12/23/16 12/23/16 04:18 04:18 08:30 WBC 22.0 H RBC 4.46 Hgb 13.5 Hct 41.5 MCV 93.1 MCH 30.2 MCHC 32.4 L RDW 16.8 H Plt Count 216 MPV 8.0 Neut % (Auto) 96.8 H Lymph % (Auto) 2.7 L [place] % (Auto) 0.5 Eos % (Auto) 0.0 Baso % (Auto) 0.0 Neut # 21.3 H Lymph # 0.6 L [place] # 0.1 Eos # 0.0 Baso # 0.0 Neutrophils % (Manual) 96 H Band Neutrophils % 1 Lymphocytes % (Manual) 2 L Monocytes % (Manual) 1 Eosinophils % (Manual) Toxic Granulation Present Platelet Estimate Normal Anisocytosis (manual) Slight PT INR APTT Sodium 136 Potassium 3.9 Chloride 98 Carbon Dioxide 26 Anion Gap 15 BUN 13 Creatinine 0.8 Est GFR ( Amer) > 60 Est GFR (Non-Af Amer) > 60 Random Glucose 245 H Hemoglobin A1c Calcium 8.5 L Phosphorus 2.9 Magnesium 1.8 Total Bilirubin 0.4 AST 26 ALT 38 Alkaline Phosphatase 77 Troponin I NT-Pro-B Natriuret Pep Total Protein 7.2 Albumin 3.7 Globulin 3.5 Albumin/Globulin Ratio 1.0 Urine Color Urine Clarity Urine pH Ur Specific [place] Urine Protein Urine Glucose (UA) Urine Ketones Urine Blood Urine Nitrate Urine Bilirubin Urine Urobilinogen Ur Leukocyte Esterase Urine WBC (Auto) Urine RBC (Auto) Ur Squamous Epith Cells HIV 1&2 Antibody Screen Influenza Typ A,B (EIA) Ur L.pneumophila Ag Negative 12/23/16 10:27 WBC RBC Hgb Hct MCV MCH MCHC RDW Plt Count MPV Neut % (Auto) Lymph % (Auto) [place] % (Auto) Eos % (Auto) Baso % (Auto) Neut # Lymph # [place] # Eos # Baso # Neutrophils % (Manual) Band Neutrophils % Lymphocytes % (Manual) Monocytes % (Manual) Eosinophils % (Manual) Toxic Granulation Platelet Estimate Anisocytosis (manual) PT INR APTT Sodium Potassium Chloride Carbon Dioxide Anion Gap BUN Creatinine Est GFR ( Amer) Est GFR (Non-Af Amer) Random Glucose Hemoglobin A1c Calcium Phosphorus Magnesium Total Bilirubin AST ALT Alkaline Phosphatase Troponin I NT-Pro-B Natriuret Pep Total Protein Albumin Globulin Albumin/Globulin Ratio Urine Color Urine Clarity Urine pH Ur Specific [place] Urine Protein Urine Glucose (UA) Urine Ketones Urine Blood Urine Nitrate Urine Bilirubin Urine Urobilinogen Ur Leukocyte Esterase Urine WBC (Auto) Urine RBC (Auto) Ur Squamous Epith Cells HIV 1&2 Antibody Screen Negative Influenza Typ A,B (EIA) Ur L.pneumophila Ag Assessment & Plan (1) COPD with lower respiratory infection Status: Acute (2) Hemoptysis Status: Acute (3) History of rheumatoid arthritis Status: Acute (4) Latent tuberculosis Status: Acute (5) Leukocytosis Status: Acute (6) Lung mass Status: Acute (7) Breast cancer Status: Chronic - Assessment and Plan (Free Text) Assessment: cont emiric IV antibiotics await cultures and smears for AFB/ Fungus will likely need FOB and Bx
--- NOTE | 2016-12-23 14:46 | CP.PCM.CON ---
History of Present Illness - History of Present Illness History of Present Illness: Reason for consultation: shortness of breath and cough productive off blood- tinged sputum 61 year old AA female, with PMHx of Rheumatoid arthritis, Latent TB, and right breast cancer with breast mastectomy, who presents to [facility] ED of productive cough/blood tinged sputum. Also complaining of shortness of breath which is mostly on exertion. Denies fever chills, denies chest pain. PMHx: Rheumatoid Arthritis ( DX 2015), Latent TB (Diagnosed in 2016), Breat Ca ( Diagnosed 2005) Lumpectomy (2007) with Mastectomy in (2011) PSHx: Lumpectomy (2007) with radiation, Mastectomy (2011) Fam Hx: denies SHx: Tobacco - ~3/4 ppd x 20 yrs (quit 2 years ago); admits social alcohol usage ; denies illicit drugs Meds: Tocilizumab injection q2 wks, Methotrexate 2.5 mg 4 tabs weekly, Prednisone 2.5 mg x 5 tabs daily (has been on for > 1 year, tapering down), Isonaizid 300mg PO daily, Pyridoxine 50mg PO Daily Review of Systems - Review of Systems All systems: reviewed and no additional remarkable complaints except (Shortness of breath and cough productive of blood-tinged sputum) Past Patient History - Past Social History Smoking Status: Former Smoker - CARDIAC Hx Cardiac Disorders: No - PULMONARY Hx Respiratory Disorders: Yes Other/Comment: seasonal/pollen allergies - NEUROLOGICAL Hx Neurological Disorder: No - HEENT Hx HEENT Problems: No - RENAL Hx Chronic Kidney Disease: No - ENDOCRINE/METABOLIC Hx Endocrine Disorders: No - HEMATOLOGICAL/ONCOLOGICAL Hx Blood Disorders: No - INTEGUMENTARY Hx Dermatological Problems: No - MUSCULOSKELETAL/RHEUMATOLOGICAL Hx Rheumatoid Arthritis: Yes - GASTROINTESTINAL Hx Gastrointestinal Disorders: No - GENITOURINARY/GYNECOLOGICAL Hx Genitourinary Disorders: No - PSYCHIATRIC Hx Substance Use: No - SURGICAL HISTORY Hx Hysterectomy: Yes Hx Mastectomy: Yes (RIGHT BREAST) - ANESTHESIA Hx Anesthesia: Yes Hx Anesthesia Reactions: No Hx Malignant Hyperthermia: No Meds Allergies/Adverse Reactions: Allergies Allergy/AdvReac Type Severity Reaction Status Date / Time Penicillins AdvReac Verified 12/22/16 18:59 - Medications Medications: Current Medications Albuterol/Ipratropium (Duoneb 3 Mg/0.5 Mg (3 Ml) Ud) 3 ml INH RQ6 PRN PRN Reason: Shortness of Breath Guaifenesin (Robitussin) 100 mg PO Q4H PRN PRN Reason: Cough Last Admin: 12/23/16 09:43 Dose: 100 mg Heparin Sodium (Porcine) (Heparin) 5,000 units SC Q8 [facility] Last Admin: 12/23/16 13:21 Dose: 5,000 units Azithromycin 500 mg/ Sodium (Chloride) 250 mls @ 250 mls/hr IVPB DAILY [facility] Last Admin: 12/23/16 09:48 Dose: 250 mls/hr Ceftriaxone Sodium (Rocephin Iv 1 Gm Duplex) 50 mls @ 100 mls/hr IVPB DAILY [facility] Last Admin: 12/23/16 11:00 Dose: 100 mls/hr Isoniazid (Niazid) 300 mg PO DAILY [facility] Last Admin: 12/23/16 09:43 Dose: 300 mg Pantoprazole Sodium (Protonix Inj) 40 mg IVP DAILY [facility] Last Admin: 12/23/16 09:43 Dose: 40 mg Prednisone (Prednisone) 2.5 mg PO DAILY [facility] Last Admin: 12/23/16 14:17 Dose: 2.5 mg Prednisone (Prednisone Tab) 10 mg PO DAILY [facility] Last Admin: 12/23/16 14:16 Dose: 10 mg Pyridoxine HCl (Vitamin B6 50 Mg Tab) 50 mg PO DAILY [facility] Last Admin: 12/23/16 14:17 Dose: 50 mg Physical Exam - Head Exam Head Exam: ATRAUMATIC, NORMOCEPHALIC - Eye Exam Eye Exam: Normal appearance - ENT Exam ENT Exam: Mucous Membranes Moist - Neck Exam Neck exam: Positive for: Normal Inspection - Respiratory Exam Respiratory Exam: Rhonchi, Wheezes - Cardiovascular Exam Cardiovascular Exam: REGULAR RHYTHM - GI/Abdominal Exam GI & Abdominal Exam: Normal Bowel Sounds, Soft - Extremities Exam Extremities exam: Positive for: normal inspection - Neurological Exam Neurological exam: Alert Results - Vital Signs Recent Vital Signs: Last Vital Signs Temp 97.9 F 12/22/16 23:53 Pulse 78 12/23/16 08:00 Resp 18 12/23/16 06:25 BP 170/92 H 12/23/16 06:25 Pulse Ox 99 12/23/16 06:58 - Labs Result Diagrams: 12/23/16 04:18 12/23/16 04:18 Labs: Laboratory Results - last 24 hr 12/22/16 12/22/16 12/22/16 19:50 19:50 19:50 WBC 22.2 H RBC 4.55 Hgb 13.8 Hct 42.3 MCV 93.0 D MCH 30.4 MCHC 32.7 L RDW 16.8 H Plt Count 223 D MPV 7.8 Neut % (Auto) 87.7 H Lymph % (Auto) 7.0 L [place] % (Auto) 3.5 Eos % (Auto) 1.5 Baso % (Auto) 0.3 Neut # 19.5 H Lymph # 1.5 [place] # 0.8 Eos # 0.3 Baso # 0.1 Neutrophils % (Manual) 88 H Band Neutrophils % Lymphocytes % (Manual) 6 L Monocytes % (Manual) 5 Eosinophils % (Manual) 1 Toxic Granulation Platelet Estimate Normal Anisocytosis (manual) Slight PT 11.6 INR 1.0 APTT 27 Sodium 132 Potassium 3.8 Chloride 96 L Carbon Dioxide 27 Anion Gap 13 BUN 12 Creatinine 0.9 Est GFR ( Amer) > 60 Est GFR (Non-Af Amer) > 60 Random Glucose 135 H Hemoglobin A1c Calcium 8.5 L Phosphorus Magnesium Total Bilirubin 1.0 AST 21 ALT 41 Alkaline Phosphatase 84 Troponin I < 0.0120 NT-Pro-B Natriuret Pep 456 Total Protein 6.4 Albumin 3.9 Globulin 2.5 Albumin/Globulin Ratio 1.6 Urine Color Urine Clarity Urine pH Ur Specific [place] Urine Protein Urine Glucose (UA) Urine Ketones Urine Blood Urine Nitrate Urine Bilirubin Urine Urobilinogen Ur Leukocyte Esterase Urine WBC (Auto) Urine RBC (Auto) Ur Squamous Epith Cells HIV 1&2 Antibody Screen Influenza Typ A,B (EIA) Ur L.pneumophila Ag 12/22/16 12/22/16 12/23/16 19:52 20:25 04:18 WBC RBC Hgb Hct MCV MCH MCHC RDW Plt Count MPV Neut % (Auto) Lymph % (Auto) [place] % (Auto) Eos % (Auto) Baso % (Auto) Neut # Lymph # [place] # Eos # Baso # Neutrophils % (Manual) Band Neutrophils % Lymphocytes % (Manual) Monocytes % (Manual) Eosinophils % (Manual) Toxic Granulation Platelet Estimate Anisocytosis (manual) PT INR APTT Sodium Potassium Chloride Carbon Dioxide Anion Gap BUN Creatinine Est GFR ( Amer) Est GFR (Non-Af Amer) Random Glucose Hemoglobin A1c 6.3 Calcium Phosphorus Magnesium Total Bilirubin AST ALT Alkaline Phosphatase Troponin I NT-Pro-B Natriuret Pep Total Protein Albumin Globulin Albumin/Globulin Ratio Urine Color Straw Urine Clarity Clear Urine pH 6.0 Ur Specific [place] 1.006 Urine Protein Negative Urine Glucose (UA) Normal Urine Ketones Negative Urine Blood Negative Urine Nitrate Negative Urine Bilirubin Negative Urine Urobilinogen Normal Ur Leukocyte Esterase Neg Urine WBC (Auto) 1 Urine RBC (Auto) 1 Ur Squamous Epith Cells 1 HIV 1&2 Antibody Screen Influenza Typ A,B (EIA) Negative for flu a/b Ur L.pneumophila Ag 12/23/16 12/23/16 12/23/16 04:18 04:18 08:30 WBC 22.0 H RBC 4.46 Hgb 13.5 Hct 41.5 MCV 93.1 MCH 30.2 MCHC 32.4 L RDW 16.8 H Plt Count 216 MPV 8.0 Neut % (Auto) 96.8 H Lymph % (Auto) 2.7 L [place] % (Auto) 0.5 Eos % (Auto) 0.0 Baso % (Auto) 0.0 Neut # 21.3 H Lymph # 0.6 L [place] # 0.1 Eos # 0.0 Baso # 0.0 Neutrophils % (Manual) 96 H Band Neutrophils % 1 Lymphocytes % (Manual) 2 L Monocytes % (Manual) 1 Eosinophils % (Manual) Toxic Granulation Present Platelet Estimate Normal Anisocytosis (manual) Slight PT INR APTT Sodium 136 Potassium 3.9 Chloride 98 Carbon Dioxide 26 Anion Gap 15 BUN 13 Creatinine 0.8 Est GFR ( Amer) > 60 Est GFR (Non-Af Amer) > 60 Random Glucose 245 H Hemoglobin A1c Calcium 8.5 L Phosphorus 2.9 Magnesium 1.8 Total Bilirubin 0.4 AST 26 ALT 38 Alkaline Phosphatase 77 Troponin I NT-Pro-B Natriuret Pep Total Protein 7.2 Albumin 3.7 Globulin 3.5 Albumin/Globulin Ratio 1.0 Urine Color Urine Clarity Urine pH Ur Specific [place] Urine Protein Urine Glucose (UA) Urine Ketones Urine Blood Urine Nitrate Urine Bilirubin Urine Urobilinogen Ur Leukocyte Esterase Urine WBC (Auto) Urine RBC (Auto) Ur Squamous Epith Cells HIV 1&2 Antibody Screen Influenza Typ A,B (EIA) Ur L.pneumophila Ag Negative 12/23/16 10:27 WBC RBC Hgb Hct MCV MCH MCHC RDW Plt Count MPV Neut % (Auto) Lymph % (Auto) [place] % (Auto) Eos % (Auto) Baso % (Auto) Neut # Lymph # [place] # Eos # Baso # Neutrophils % (Manual) Band Neutrophils % Lymphocytes % (Manual) Monocytes % (Manual) Eosinophils % (Manual) Toxic Granulation Platelet Estimate Anisocytosis (manual) PT INR APTT Sodium Potassium Chloride Carbon Dioxide Anion Gap BUN Creatinine Est GFR ( Amer) Est GFR (Non-Af Amer) Random Glucose Hemoglobin A1c Calcium Phosphorus Magnesium Total Bilirubin AST ALT Alkaline Phosphatase Troponin I NT-Pro-B Natriuret Pep Total Protein Albumin Globulin Albumin/Globulin Ratio Urine Color Urine Clarity Urine pH Ur Specific [place] Urine Protein Urine Glucose (UA) Urine Ketones Urine Blood Urine Nitrate Urine Bilirubin Urine Urobilinogen Ur Leukocyte Esterase Urine WBC (Auto) Urine RBC (Auto) Ur Squamous Epith Cells HIV 1&2 Antibody Screen Negative Influenza Typ A,B (EIA) Ur L.pneumophila Ag Assessment & Plan (1) COPD with lower respiratory infection Status: Acute Comment: elevated white count with productive cough and blood-tinged sputum. Continue antibiotics per infectious diseas. Followup culture and sensitivity (2) Hemoptysis Status: Acute Comment: right paraspinousmass, rule out malignancy. IR for CT-guided biopsy
[2016-12-23] MEDS ORDERED: Iohexol 240 (50 ml) PO ONE (18:45)
[2016-12-23] MEDS ORDERED: Iodixanol 320 mg/ml 150 ml Bottle IV ONE (19:56)
--- NOTE | 2016-12-23 21:38 | CT ---
EXAM: CT Abdomen and Pelvis With Intravenous Contrast EXAM DATE/TIME: 12/23/2016 1:44 PM CLINICAL HISTORY: 61 years old, female; Condition or disease; Other: Hemptysis; Additional info: Breast cancer TECHNIQUE: Axial computed tomography images of the abdomen and pelvis with intravenous contrast. All CT scans at this facility use one or more dose reduction techniques, viz.: automated exposure control; ma/kV adjustment per patient size (including targeted exams where dose is matched to indication; i.e. head); or iterative reconstruction technique. Coronal and sagittal reformatted images were created and reviewed. CONTRAST: 100 mL of VISIPAQUE 320 administered intravenously. COMPARISON: No relevant prior studies available. FINDINGS: LIMITATIONS: Moderate streak/motion artifact. LOWER THORAX: No infiltrate seen in the lung bases. ABDOMEN: LIVER: Findings suspicious for an indeterminate liver lesion in the left lobe, near the liver dome, measuring 2 cm, which does not appear to represent a cyst. It has peripheral, nodular enhancement, and it could represent a hemangioma, but it is indeterminate on this exam. This lesion could be further evaluated with followup liver protocol CT or MRI, as clinically indicated, on a nonemergent basis. Fatty infiltration of the liver. No evidence of diffuse liver lesions. GALLBLADDER AND BILE DUCTS: No CT evidence of acute cholecystitis. No evidence of significant biliary ductal dilatation. PANCREAS: No CT evidence of acute pancreatitis. SPLEEN: No acute abnormality of the spleen identified. ADRENALS: No acute abnormality of the adrenal glands identified. KIDNEYS AND URETERS: No acute abnormality of the kidneys identified. No evidence of significant hydrouereteronephrosis. STOMACH AND BOWEL: Extensive colonic diverticulosis, without evidence of acute diverticulitis. Otherwise, no significant abnormality of the bowel is identified. No evidence of bowel obstruction. APPENDIX: Appendix is seen, and is within normal limits in appearance. PELVIS: BLADDER: Mild thickening of the bladder wall. REPRODUCTIVE: No acute abnormality of the uterus identified. No evidence of large adnexal masses. ABDOMEN and PELVIS: INTRAPERITONEAL SPACE: No evidence of free intraperitoneal air or fluid. BONES/JOINTS: No acute fractures or other acute bony abnormality noted. No evidence of diffuse bony lesions. SOFT TISSUES: No acute abnormality of the visualized soft tissues is seen. VASCULATURE: No evidence of abdominal aortic aneurysm. No evidence of periaortic hemorrhage. LYMPH NODES: No evidence of diffuse lymphadenopathy. IMPRESSION: - Mild bladder wall thickening. This is a nonspecific finding, but can be seen with cystitis. Recommend clinical correlation. - Otherwise, no evidence of significant acute process. - Incidental indeterminate liver lesion. See above recommendations. - See above for remaining findings.
--- NOTE | 2016-12-23 22:02 | CP.PCM.CON ---
History of Present Illness - History of Present Illness History of Present Illness: 61 year old female with a history of rheumatoid arthritis, latent TB, breast cancer s/p right sided mastectomy, radiation therapy in 2005, admitted with cough and hemoptysis, found to have mediastinal lymphadenopathy and pulmonary lesions concerning for metastatic malignancy. The patient reports to progressive cough with blood streaks. This concerned her and prompted her to come to the ER. A CT chest revealed b/l pulmonary lesions and mediastinal lymphadenopathy. She does admit to worsening headaches as well. Past medical history: Rheumatoid arthritis, latent TB, breast cancer Past surgical history: Mastectomy Family history: Denies hematologic and oncologic problems Social history: Denies tobacco, alcohol, and illicit drug use. Allergies: Penicillins Review of systems: All remaining review of systems including HEENT, cardiovacular, respiratory, gastrointestinal, genitourinary, musculoskeletal, dermatologic, neurologic, and psychiatric are negative unless mentioned in the HPI. Past Patient History - Past Social History Smoking Status: Former Smoker - CARDIAC Hx Cardiac Disorders: No - PULMONARY Hx Respiratory Disorders: Yes Other/Comment: seasonal/pollen allergies - NEUROLOGICAL Hx Neurological Disorder: No - HEENT Hx HEENT Problems: No - RENAL Hx Chronic Kidney Disease: No - ENDOCRINE/METABOLIC Hx Endocrine Disorders: No - HEMATOLOGICAL/ONCOLOGICAL Hx Blood Disorders: No - INTEGUMENTARY Hx Dermatological Problems: No - MUSCULOSKELETAL/RHEUMATOLOGICAL Hx Rheumatoid Arthritis: Yes - GASTROINTESTINAL Hx Gastrointestinal Disorders: No - GENITOURINARY/GYNECOLOGICAL Hx Genitourinary Disorders: No - PSYCHIATRIC Hx Substance Use: No - SURGICAL HISTORY Hx Hysterectomy: Yes Hx Mastectomy: Yes (RIGHT BREAST) - ANESTHESIA Hx Anesthesia: Yes Hx Anesthesia Reactions: No Hx Malignant Hyperthermia: No Meds Allergies/Adverse Reactions: Allergies Allergy/AdvReac Type Severity Reaction Status Date / Time Penicillins AdvReac Verified 12/22/16 18:59 - Medications Medications: Current Medications Albuterol/Ipratropium (Duoneb 3 Mg/0.5 Mg (3 Ml) Ud) 3 ml INH RQ6 PRN PRN Reason: Shortness of Breath Guaifenesin (Robitussin) 100 mg PO Q4H PRN PRN Reason: Cough Last Admin: 12/23/16 09:43 Dose: 100 mg Heparin Sodium (Porcine) (Heparin) 5,000 units SC Q8 [facility] Last Admin: 12/23/16 13:21 Dose: 5,000 units Azithromycin 500 mg/ Sodium (Chloride) 250 mls @ 250 mls/hr IVPB DAILY [facility] Last Admin: 12/23/16 09:48 Dose: 250 mls/hr Ceftriaxone Sodium (Rocephin Iv 1 Gm Duplex) 50 mls @ 100 mls/hr IVPB DAILY [facility] Last Admin: 12/23/16 11:00 Dose: 100 mls/hr Isoniazid (Niazid) 300 mg PO DAILY [facility] Last Admin: 12/23/16 09:43 Dose: 300 mg Pantoprazole Sodium (Protonix Inj) 40 mg IVP DAILY [facility] Last Admin: 12/23/16 09:43 Dose: 40 mg Prednisone (Prednisone) 2.5 mg PO DAILY [facility] Last Admin: 12/23/16 14:17 Dose: 2.5 mg Prednisone (Prednisone Tab) 10 mg PO DAILY [facility] Last Admin: 12/23/16 14:16 Dose: 10 mg Pyridoxine HCl (Vitamin B6 50 Mg Tab) 50 mg PO DAILY [facility] Last Admin: 12/23/16 14:17 Dose: 50 mg Physical Exam - Head Exam Head Exam: ATRAUMATIC - Eye Exam Eye Exam: Normal appearance - ENT Exam ENT Exam: Mucous Membranes Dry - Respiratory Exam Respiratory Exam: NORMAL BREATHING PATTERN - Cardiovascular Exam Cardiovascular Exam: +S1, +S2 - GI/Abdominal Exam GI & Abdominal Exam: Normal Bowel Sounds - Extremities Exam Extremities exam: Positive for: normal inspection - Neurological Exam Neurological exam: Oriented x3 - Psychiatric Exam Psychiatric exam: Normal Affect, Normal Mood - Skin Skin Exam: Warm Results - Vital Signs Recent Vital Signs: Last Vital Signs Temp 97.9 F 12/22/16 23:53 Pulse 81 12/23/16 18:00 Resp 18 12/23/16 06:25 BP 170/92 H 12/23/16 06:25 Pulse Ox 99 12/23/16 06:58 - Labs Result Diagrams: 12/23/16 04:18 12/23/16 04:18 Labs: Laboratory Results - last 24 hr 12/23/16 12/23/16 12/23/16 04:18 04:18 04:18 WBC 22.0 H RBC 4.46 Hgb 13.5 Hct 41.5 MCV 93.1 MCH 30.2 MCHC 32.4 L RDW 16.8 H Plt Count 216 MPV 8.0 Neut % (Auto) 96.8 H Lymph % (Auto) 2.7 L Hendry % (Auto) 0.5 Eos % (Auto) 0.0 Baso % (Auto) 0.0 Neut # 21.3 H Lymph # 0.6 L Hendry # 0.1 Eos # 0.0 Baso # 0.0 Neutrophils % (Manual) 96 H Band Neutrophils % 1 Lymphocytes % (Manual) 2 L Monocytes % (Manual) 1 Toxic Granulation Present Platelet Estimate Normal Anisocytosis (manual) Slight Sodium 136 Potassium 3.9 Chloride 98 Carbon Dioxide 26 Anion Gap 15 BUN 13 Creatinine 0.8 Est GFR ( Amer) > 60 Est GFR (Non-Af Amer) > 60 Random Glucose 245 H Hemoglobin A1c 6.3 Calcium 8.5 L Phosphorus 2.9 Magnesium 1.8 Total Bilirubin 0.4 AST 26 ALT 38 Alkaline Phosphatase 77 Total Protein 7.2 Albumin 3.7 Globulin 3.5 Albumin/Globulin Ratio 1.0 Procalcitonin HIV 1&2 Antibody Screen Ur L.pneumophila Ag 12/23/16 12/23/16 12/23/16 08:30 10:27 13:38 WBC RBC Hgb Hct MCV MCH MCHC RDW Plt Count MPV Neut % (Auto) Lymph % (Auto) Hendry % (Auto) Eos % (Auto) Baso % (Auto) Neut # Lymph # Hendry # Eos # Baso # Neutrophils % (Manual) Band Neutrophils % Lymphocytes % (Manual) Monocytes % (Manual) Toxic Granulation Platelet Estimate Anisocytosis (manual) Sodium Potassium Chloride Carbon Dioxide Anion Gap BUN Creatinine Est GFR ( Amer) Est GFR (Non-Af Amer) Random Glucose Hemoglobin A1c Calcium Phosphorus Magnesium Total Bilirubin AST ALT Alkaline Phosphatase Total Protein Albumin Globulin Albumin/Globulin Ratio Procalcitonin 0.06 L HIV 1&2 Antibody Screen Negative Ur L.pneumophila Ag Negative Assessment & Plan (1) Lung mass Assessment and Plan: pulmonary evaluation; biopsy ? malignancy - breast vs lung Status: Acute (2) Leukocytosis Assessment and Plan: on antibiotics Status: Acute (3) History of breast cancer Assessment and Plan: will add breast cancer tumor marker MRI brain to evaluate headaches Thank you for this interesting consult. Status: Acute
[2016-12-24] MEDS: guaiFENesin 100 mg/5 ml Syrup UD PO PRN (02:19)
[2016-12-24 06:38] LABS: BASO % 0.1 % (0.0-2.0); EOS # 0.1 K/uL (0.0-0.7); EOS % 0.3 % (0.0-4.0); HEMATOCRIT 40.4 % (34.0-47.0); LYMPH # 2.4 K/uL (1.0-4.3); LYMPH % 13.2 % (20.0-40.0); MEAN CELL VOLUME 93.6 fL (81.0-99.0); MEAN CORPUSCULAR HEMOGLOBIN 31.1 pg (27.0-31.0); MEAN CORPUSCULAR HGB CONC 33.2 g/dL (33.0-37.0); MEAN PLATELET VOLUME 8.2 fL (7.2-11.7); MONO # 1.2 K/uL (0.0-0.8); MONO % 6.7 % (0.0-10.0); RED CELL DISTRIBUTION WIDTH 16.5 % (11.5-14.5); WHITE BLOOD COUNT 18.1 K/uL (4.8-10.8)
[2016-12-24 06:50] LABS: BLOOD UREA NITROGEN 16 mg/dL (7-17); GFR AFRICAN-AMERICAN > 60; GLUCOSE,RANDOM 92 mg/dL (65-105)
[2016-12-24 06:51] LABS: ALKALINE PHOSPHATASE 82 U/L (38-126); ALT/SGPT 50 U/L (9-52); AST/SGOT 34 U/L (14-36); BILIRUBIN,TOTAL 0.5 mg/dL (0.2-1.3); CALCIUM 8.5 mg/dl (8.6-10.4); CARBON DIOXIDE 29 mmol/L (22-30); CHLORIDE 102 mmol/L (98-107); POTASSIUM 3.8 mmol/L (3.6-5.2); SODIUM 137 mmol/L (132-148); TOTAL PROTEIN 6.8 g/dL (6.3-8.3)
--- NOTE | 2016-12-24 09:32 | CP.PCM.PN ---
Addendum entered and electronically signed by Lorna Thao DO 12/24/16 09: 36: Patient is not asking for duonebs but she is wheezing. Changed duonebs from PRN to scheduled Original Note: <Lorna Thao - Last Filed: 12/24/16 09:25> Subjective - Date & Time of Evaluation Date of Evaluation: 12/24/16 Time of Evaluation: 09:15 - Subjective Subjective: PGY3 Medicine Note - Dr. Schaffer's service: Patient seen and examined at bedside this AM. 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 Patient denies blood in her sputum. Patient reports SOB sometimes. She says she quit smoking a few years ago and has never had asthma. Patient reports diarrhea from the omnipaque. Patient denies fever, chills, chest pain, abdominal pain, nausea, vomiting, constipation. Objective - Vital Signs/Intake and Output Vital Signs (last 24 hours): Temp Pulse Resp BP Pulse Ox 98.7 F 74 20 152/78 H 97 12/24/16 02:00 12/24/16 02:00 12/24/16 02:00 12/24/16 02:00 12/24/16 02:00 Intake and Output: 12/24/16 12/24/16 06:59 18:59 Intake Total 800 Output Total 700 Balance 100 - Medications Medications: Current Medications Albuterol/Ipratropium (Duoneb 3 Mg/0.5 Mg (3 Ml) Ud) 3 ml INH RQ6 PRN PRN Reason: Shortness of Breath Guaifenesin (Robitussin) 100 mg PO Q4H PRN PRN Reason: Cough Last Admin: 12/24/16 02:19 Dose: 100 mg Heparin Sodium (Porcine) (Heparin) 5,000 units SC Q8 [facility] Last Admin: 12/24/16 06:47 Dose: 5,000 units Azithromycin 500 mg/ Sodium (Chloride) 250 mls @ 250 mls/hr IVPB DAILY [facility] Last Admin: 12/23/16 09:48 Dose: 250 mls/hr Ceftriaxone Sodium (Rocephin Iv 1 Gm Duplex) 50 mls @ 100 mls/hr IVPB DAILY [facility] Last Admin: 12/23/16 11:00 Dose: 100 mls/hr Isoniazid (Niazid) 300 mg PO DAILY [facility] Last Admin: 12/23/16 09:43 Dose: 300 mg Pantoprazole Sodium (Protonix Inj) 40 mg IVP DAILY [facility] Last Admin: 12/23/16 09:43 Dose: 40 mg Prednisone (Prednisone) 2.5 mg PO DAILY [facility] Last Admin: 12/23/16 14:17 Dose: 2.5 mg Prednisone (Prednisone Tab) 10 mg PO DAILY [facility] Last Admin: 12/23/16 14:16 Dose: 10 mg Pyridoxine HCl (Vitamin B6 50 Mg Tab) 50 mg PO DAILY [facility] Last Admin: 12/23/16 14:17 Dose: 50 mg - Labs Labs: 12/24/16 06:27 12/24/16 06:27 PT 11.6 SECONDS (9.7-12.2) 12/22/16 19:50 INR 1.0 12/22/16 19:50 APTT 27 SECONDS (21-34) 12/22/16 19:50 - Constitutional Appears: Non-toxic, No Acute Distress - Head Exam Head Exam: NORMAL INSPECTION - Eye Exam Eye Exam: EOMI - ENT Exam ENT Exam: Mucous Membranes Moist - Respiratory Exam Respiratory Exam: Rhonchi, Wheezes, NORMAL BREATHING PATTERN. absent: Accessory Muscle Use, Respiratory Distress - Cardiovascular Exam Cardiovascular Exam: REGULAR RHYTHM, +S1, +S2. absent: Gallop, Rubs, Murmur - GI/Abdominal Exam GI & Abdominal Exam: Soft, Normal Bowel Sounds. absent: Tenderness - Extremities Exam Extremities Exam: absent: Pedal Edema - Neurological Exam Neurological Exam: Alert, Awake, Oriented x3 - Psychiatric Exam Psychiatric exam: Normal Affect, Normal Mood - Skin Skin Exam: Normal Color, Warm Assessment and Plan - Assessment and Plan (Free Text) Assessment: Hemoptysis Assessment & Plan: Etiologies: lung mass vs tuberculosis vs bronchiestasis Concern for tuberculosis given patient has hx of latent tuberculosis was on INH ; on immunosuppression for Rheumatoid arthritis therapy vs cancer given patient history of breast cancer Pulmonary (Dr. Pedro) on board hematology-oncology (Dr. Tylor Koenig)-->will get in touch with patient's heme-onc, Dr Griggs Infectious Disease (Dr. Sanches)-->who sees patient as outpatient On respiratory isolation, ordered for AFB X3 per PMD's office, prior hx of PPD+ and Quantaferon positive on 06/21/16 HIV Screen Negative Influenza Negative Legionella Negative Procalcitonin 0.06 (low) blood culture negative x 24 hours F/U mycoplasma pneumoniae Ab F/U fungus culture Sputum gram stain 12/23 shows few polymorphonuclear WBCs, no organisms seen F/U Sputum culture Status: Acute Lung mass Assessment & Plan: Pulmonary (Dr. Pedro) on board-->help appreciated CT Chest (12/22/16): no pulmonary embolism, Dominant mass with the right paraspinous position, measuring 2.5cm in greast dimension. Smaller satellite lesions are note within the left upper lobe. Mediastinal lymphadenopathy is also present Chest Xray (12/23/16): mild venous congestion. Prominent bibasilar breast shadows. Questionable patchy increased markings at the lung bases w question blunting of the left costophrenic angle which may represent a small pleural effusion. Spoke with [facility] medical staff; patient had a prior chest xray 06/30/16 which showed no acute cardiopulmonary pathology Status: Acute Diarrhea Assessment & Plan: Likely secondary to omnipaque. If no improvement in 24 hours, will get cultures. 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 Patient has had tapering off prednisone over one year Status: Chronic Latent tuberculosis Assessment & Plan: History of +PPD and Quantaferon on 06/21/16 per discussion with office staff at [facility]. Patient put on Respiratory isolation. Given patient's hemotypsis and immunosuppression for treatment of RA, concern if this is active tuberculosis. Ordered for Sputum AFB X3 Patient was previously taking Isonazid. Patient sees Dr. Sanches ([facility]) as outpatient F/U Quantiferon TB Gold Status: Chronic Breast cancer Assessment & Plan: History of Breast Cancer Patient sees Dr. Griggs (heme-onc) as outpatient. Unclear what type of breast cancer or what the surveillance. CT Abd/Pelvis with PO and IV contrast 12/23/16 - mild bladder wall thickening; nonspecific finding, but can be seen with cystitis. no evidence of significant acute preocess. incidental indeterminate liver lesion in left lobe of 2cm. Possibly a hemangioma. Liver protocol CT recommended nonemergently. Patient will need to follow up outpatient for Liver protocol CT. F/U MRI Brain w/wo contrast to rule out metastasis (patient with sinus headaches for >1 year) Status: Chronic Prophylactic measure Assessment & Plan: Attempted to call PMD: Dr. Carreon; wont be available until Monday ([facility]) held chemical anticoagulation given patient comes in with hemotypsis Status: Acute <Franco Schaffer - Last Filed: 12/24/16 16:38> Objective - Vital Signs/Intake and Output Vital Signs (last 24 hours): Temp Pulse Resp BP Pulse Ox 98.7 F 74 20 152/78 H 97 12/24/16 02:00 12/24/16 02:00 12/24/16 02:00 12/24/16 02:00 12/24/16 02:00 Intake and Output: 12/24/16 12/24/16 06:59 18:59 Intake Total 800 Output Total 700 Balance 100 - Medications Medications: Current Medications Albuterol/Ipratropium (Duoneb 3 Mg/0.5 Mg (3 Ml) Ud) 3 ml INH RQ6 [facility] Guaifenesin (Robitussin) 100 mg PO Q4H PRN PRN Reason: Cough Last Admin: 12/24/16 02:19 Dose: 100 mg Heparin Sodium (Porcine) (Heparin) 5,000 units SC Q8 [facility] Last Admin: 12/24/16 06:47 Dose: 5,000 units Azithromycin 500 mg/ Sodium (Chloride) 250 mls @ 250 mls/hr IVPB DAILY [facility] Last Admin: 12/24/16 09:49 Dose: 250 mls/hr Ceftriaxone Sodium (Rocephin Iv 1 Gm Duplex) 50 mls @ 100 mls/hr IVPB DAILY [facility] Last Admin: 12/24/16 09:49 Dose: 100 mls/hr Isoniazid (Niazid) 300 mg PO DAILY [facility] Last Admin: 12/24/16 09:46 Dose: 300 mg Pantoprazole Sodium (Protonix Inj) 40 mg IVP DAILY [facility] Last Admin: 12/24/16 09:50 Dose: 40 mg Prednisone (Prednisone) 2.5 mg PO DAILY [facility] Last Admin: 12/24/16 09:46 Dose: 2.5 mg Prednisone (Prednisone Tab) 10 mg PO DAILY [facility] Last Admin: 12/24/16 09:47 Dose: 10 mg Pyridoxine HCl (Vitamin B6 50 Mg Tab) 50 mg PO DAILY [facility] Last Admin: 12/24/16 09:50 Dose: 50 mg - Labs Labs: 12/24/16 06:27 12/24/16 06:27 PT 11.6 SECONDS (9.7-12.2) 12/22/16 19:50 INR 1.0 12/22/16 19:50 APTT 27 SECONDS (21-34) 12/22/16 19:50 Attending/Attestation - Attestation I have personally seen and examined this patient.: Yes I have fully participated in the care of the patient.: Yes I have reviewed all pertinent clinical information, including history, physical exam and plan: Yes Notes (Text): Patient was seen and examined this morning at ICU feeling better,has cough with light sputum,no blood,no sob Going for MRI to rule out mets follow with pulmonary d/w The resident I agree with the resident's documentation of the assessment and the plan
[2016-12-24] MEDS: Azithromycin 500 MG in Sodium Chloride 0.9% 250 ML IVPB SCH (09:49)
[2016-12-24] MEDS: cefTRIAXone IV 1 gm in Dextros 50 ML IVPB SCH (09:49)
--- NOTE | 2016-12-24 10:03 | CP.PCM.PN ---
Subjective - Date & Time of Evaluation Date of Evaluation: 12/24/16 Time of Evaluation: 10:00 - Subjective Subjective: Has cough,denies blood with sputum,clear sputum,no fever,no sob, Objective - Vital Signs/Intake and Output Vital Signs (last 24 hours): Temp Pulse Resp BP Pulse Ox 98.7 F 74 20 152/78 H 97 12/24/16 02:00 12/24/16 02:00 12/24/16 02:00 12/24/16 02:00 12/24/16 02:00 Intake and Output: 12/24/16 12/24/16 06:59 18:59 Intake Total 800 Output Total 700 Balance 100 - Medications Medications: Current Medications Albuterol/Ipratropium (Duoneb 3 Mg/0.5 Mg (3 Ml) Ud) 3 ml INH RQ6 [facility] Guaifenesin (Robitussin) 100 mg PO Q4H PRN PRN Reason: Cough Last Admin: 12/24/16 02:19 Dose: 100 mg Heparin Sodium (Porcine) (Heparin) 5,000 units SC Q8 [facility] Last Admin: 12/24/16 06:47 Dose: 5,000 units Azithromycin 500 mg/ Sodium (Chloride) 250 mls @ 250 mls/hr IVPB DAILY [facility] Last Admin: 12/24/16 09:49 Dose: 250 mls/hr Ceftriaxone Sodium (Rocephin Iv 1 Gm Duplex) 50 mls @ 100 mls/hr IVPB DAILY [facility] Last Admin: 12/24/16 09:49 Dose: 100 mls/hr Isoniazid (Niazid) 300 mg PO DAILY [facility] Last Admin: 12/24/16 09:46 Dose: 300 mg Pantoprazole Sodium (Protonix Inj) 40 mg IVP DAILY [facility] Last Admin: 12/24/16 09:50 Dose: 40 mg Prednisone (Prednisone) 2.5 mg PO DAILY [facility] Last Admin: 12/24/16 09:46 Dose: 2.5 mg Prednisone (Prednisone Tab) 10 mg PO DAILY [facility] Last Admin: 12/24/16 09:47 Dose: 10 mg Pyridoxine HCl (Vitamin B6 50 Mg Tab) 50 mg PO DAILY [facility] Last Admin: 12/24/16 09:50 Dose: 50 mg - Labs Labs: 12/24/16 06:27 12/24/16 06:27 PT 11.6 SECONDS (9.7-12.2) 12/22/16 19:50 INR 1.0 12/22/16 19:50 APTT 27 SECONDS (21-34) 12/22/16 19:50 - Constitutional Appears: Non-toxic, No Acute Distress - Head Exam Head Exam: ATRAUMATIC - Eye Exam Eye Exam: Normal appearance - ENT Exam ENT Exam: Mucous Membranes Moist - Neck Exam Neck Exam: Full ROM - Respiratory Exam Respiratory Exam: Rales (left lower), NORMAL BREATHING PATTERN. absent: Accessory Muscle Use - Cardiovascular Exam Cardiovascular Exam: REGULAR RHYTHM - GI/Abdominal Exam GI & Abdominal Exam: Soft, Normal Bowel Sounds. absent: Rigid, Tenderness - Extremities Exam Extremities Exam: Full ROM - Neurological Exam Neurological Exam: Oriented x3 - Psychiatric Exam Psychiatric exam: Normal Mood - Skin Skin Exam: Dry
[2016-12-24] MEDS ORDERED: Gadodiamide 287 mg/ml 20 ml IV ONE (14:30)
--- NOTE | 2016-12-24 15:36 | MRI ---
PROCEDURE: MRI BRAIN WITH AND WITHOUT CONTRAST HISTORY: sinus headache for 1 yr refractive to otc meds COMPARISON: None. TECHNIQUE: Multiplanar, multisequence MR images of the brain were obtained with and without intravenous contrast enhancement. FINDINGS: HEMORRHAGE: None DWI: No evidence of an acute or early subacute infarction. BRAIN PARENCHYMA: Diffuse expansion of the ventriculosulcal and cisternal spaces is appreciated with white matter signal change compatible with diffuse cerebral atrophy and chronic microangiopathy. A chronic lacune is seen the left frontal lobe with a small cavernoma noted at the left thalamus posterior laterally. Posterior fossa contents appear grossly nonfocal and there is no mass effect. ENHANCEMENT: No abnormal intracranial enhancement. VENTRICLES: Unremarkable. No hydrocephalus. CRANIUM: Unremarkable. ORBITS: Grossly unremarkable. PARANASAL SINUSES/MASTOIDS: Moderate but diffuse sinusitis changes affect the bilateral ethmoid air cells diffusely in the bilateral frontal sinuses as imaged. Mild mucosal inflammatory defect bilateral maxillary sinuses and left greater than right sphenoid sinuses. VASCULAR SYSTEM: Skull base flow voids intact. OTHER FINDINGS: None . IMPRESSION: Mild age related neuro degenerative changes are identified without definite acute intracranial findings. 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 Extensive mucosal inflammatory changes affect the bilateral ethmoid air cells primarily and mildly affects the remaining perineal sinuses providing a limited pansinusitis pattern.
[2016-12-24] MEDS: Albuterol-Ipratrop 3 mg / 0.5 (3 ml) UD INH SCH (20:52)
--- NOTE | 2016-12-24 21:20 | CP.PCM.PN ---
Subjective - Date & Time of Evaluation Date of Evaluation: 12/24/16 Time of Evaluation: 16:30 - Subjective Subjective: Intermittent wheezing, improved with neb treatments Objective - Vital Signs/Intake and Output Vital Signs (last 24 hours): Temp Pulse Resp BP Pulse Ox 97.9 F 61 20 165/109 H 96 12/24/16 16:38 12/24/16 16:38 12/24/16 16:38 12/24/16 16:38 12/24/16 16:38 Intake and Output: 12/24/16 12/25/16 18:59 06:59 Intake Total 620 Output Total 600 Balance 20 - Medications Medications: Current Medications Albuterol/Ipratropium (Duoneb 3 Mg/0.5 Mg (3 Ml) Ud) 3 ml INH RQ6 [facility] Last Admin: 12/24/16 20:52 Dose: 3 ml Guaifenesin (Robitussin) 100 mg PO Q4H PRN PRN Reason: Cough Last Admin: 12/24/16 02:19 Dose: 100 mg Heparin Sodium (Porcine) (Heparin) 5,000 units SC Q8 [facility] Last Admin: 12/24/16 14:58 Dose: 5,000 units Azithromycin 500 mg/ Sodium (Chloride) 250 mls @ 250 mls/hr IVPB DAILY [facility] Last Admin: 12/24/16 09:49 Dose: 250 mls/hr Ceftriaxone Sodium (Rocephin Iv 1 Gm Duplex) 50 mls @ 100 mls/hr IVPB DAILY [facility] Last Admin: 12/24/16 09:49 Dose: 100 mls/hr Isoniazid (Niazid) 300 mg PO DAILY [facility] Last Admin: 12/24/16 09:46 Dose: 300 mg Pantoprazole Sodium (Protonix Inj) 40 mg IVP DAILY [facility] Last Admin: 12/24/16 09:50 Dose: 40 mg Prednisone (Prednisone) 2.5 mg PO DAILY [facility] Last Admin: 12/24/16 09:46 Dose: 2.5 mg Prednisone (Prednisone Tab) 10 mg PO DAILY [facility] Last Admin: 12/24/16 09:47 Dose: 10 mg Pyridoxine HCl (Vitamin B6 50 Mg Tab) 50 mg PO DAILY [facility] Last Admin: 12/24/16 09:50 Dose: 50 mg - Labs Labs: 12/24/16 06:27 12/24/16 06:27 PT 11.6 SECONDS (9.7-12.2) 12/22/16 19:50 INR 1.0 12/22/16 19:50 APTT 27 SECONDS (21-34) 12/22/16 19:50 - Head Exam Head Exam: ATRAUMATIC - Eye Exam Eye Exam: Normal appearance - ENT Exam ENT Exam: Mucous Membranes Dry - Respiratory Exam Respiratory Exam: Wheezes - Cardiovascular Exam Cardiovascular Exam: +S1, +S2 - GI/Abdominal Exam GI & Abdominal Exam: Normal Bowel Sounds Assessment and Plan (1) Lung mass Assessment & Plan: recommend biopsy ? infection vs malignancy Status: Acute (2) Leukocytosis Assessment & Plan: on antibiotics Status: Acute (3) History of breast cancer Assessment & Plan: breast cancer tumor marker normal ?lung lesions related to metastasis Status: Acute
[2016-12-25] MEDS: Albuterol-Ipratrop 3 mg / 0.5 (3 ml) UD INH SCH ×5 (01:35→20:41)
[2016-12-25 09:11] LABS: BASO # 0.1 K/uL (0.0-0.2); BASO % 0.6 % (0.0-2.0); EOS # 0.4 K/uL (0.0-0.7); EOS % 2.9 % (0.0-4.0); HEMATOCRIT 43.9 % (34.0-47.0); LYMPH # 4.3 K/uL (1.0-4.3); LYMPH % 35.3 % (20.0-40.0); MEAN CELL VOLUME 94.5 fL (81.0-99.0); MEAN CORPUSCULAR HEMOGLOBIN 30.4 pg (27.0-31.0); MEAN CORPUSCULAR HGB CONC 32.1 g/dL (33.0-37.0); MEAN PLATELET VOLUME 8.4 fL (7.2-11.7); MONO % 7.9 % (0.0-10.0); NRBC % 0.1 % (0.0-2.0); RED CELL DISTRIBUTION WIDTH 16.7 % (11.5-14.5); WHITE BLOOD COUNT 12.1 K/uL (4.8-10.8)
--- NOTE | 2016-12-25 09:24 | CP.PCM.PN ---
<Lorna Thao - Last Filed: 12/25/16 09:21> Subjective - Date & Time of Evaluation Date of Evaluation: 12/25/16 Time of Evaluation: 08:20 - Subjective Subjective: PGY3 Medicine Note - Dr. Skaggs's service: Patient seen and examined at bedside this AM. Patient is still coughing up white sputum but says she has not had any blood in her sputum since arriving at the hospital. Patient has not travelled outside of the country. She says she was recently in [place]. Patient reports sinus pressure and feeling like there is a "bubble" in her nose that "pops sometimes" and after she can blow her nose. She says nasal saline helps her and she has used flonase before but she is not sure if it helped. Patient denies fever, chills, chest pain, abdominal pain, nausea, vomiting, constipation. Objective - Vital Signs/Intake and Output Vital Signs (last 24 hours): Temp Pulse Resp BP Pulse Ox 98.5 F 70 20 132/77 97 12/25/16 08:03 12/25/16 08:03 12/25/16 08:03 12/25/16 08:03 12/25/16 08:03 - Medications Medications: Current Medications Acetaminophen (Tylenol 325mg Tab) 650 mg PO Q6 PRN PRN Reason: Pain, moderate (4-7) Albuterol/Ipratropium (Duoneb 3 Mg/0.5 Mg (3 Ml) Ud) 3 ml INH RQ6 [facility] Last Admin: 12/25/16 07:34 Dose: 3 ml Fluticasone Propionate (Flonase) 1 spr MORENO BID [facility] Guaifenesin (Robitussin) 100 mg PO Q4H PRN PRN Reason: Cough Last Admin: 12/24/16 02:19 Dose: 100 mg Heparin Sodium (Porcine) (Heparin) 5,000 units SC Q8 [facility] Last Admin: 12/25/16 05:34 Dose: 5,000 units Azithromycin 500 mg/ Sodium (Chloride) 250 mls @ 250 mls/hr IVPB DAILY [facility] Last Admin: 12/24/16 09:49 Dose: 250 mls/hr Ceftriaxone Sodium (Rocephin Iv 1 Gm Duplex) 50 mls @ 100 mls/hr IVPB DAILY [facility] Last Admin: 12/24/16 09:49 Dose: 100 mls/hr Isoniazid (Niazid) 300 mg PO DAILY [facility] Last Admin: 12/24/16 09:46 Dose: 300 mg Pantoprazole Sodium (Protonix Inj) 40 mg IVP DAILY [facility] Last Admin: 12/24/16 09:50 Dose: 40 mg Prednisone (Prednisone) 2.5 mg PO DAILY [facility] Last Admin: 12/24/16 09:46 Dose: 2.5 mg Prednisone (Prednisone Tab) 10 mg PO DAILY [facility] Last Admin: 12/24/16 09:47 Dose: 10 mg Pyridoxine HCl (Vitamin B6 50 Mg Tab) 50 mg PO DAILY [facility] Last Admin: 12/24/16 09:50 Dose: 50 mg Sodium Chloride ([place] Baby Saline 30 Ml) 1 ml MOREON Q6H [facility] - Labs Labs: 12/25/16 08:57 12/24/16 06:27 PT 11.6 SECONDS (9.7-12.2) 12/22/16 19:50 INR 1.0 12/22/16 19:50 APTT 27 SECONDS (21-34) 12/22/16 19:50 - Constitutional Appears: Non-toxic, No Acute Distress - Head Exam Head Exam: NORMAL INSPECTION - Eye Exam Eye Exam: EOMI - ENT Exam ENT Exam: Mucous Membranes Moist Additional comments: sinus tenderness - Respiratory Exam Respiratory Exam: Clear to Ausculation Bilateral, NORMAL BREATHING PATTERN. absent: Rales, Rhonchi, Wheezes - Cardiovascular Exam Cardiovascular Exam: REGULAR RHYTHM, +S1, +S2. absent: Gallop, Rubs, Murmur - GI/Abdominal Exam GI & Abdominal Exam: Soft, Normal Bowel Sounds. absent: Tenderness - Extremities Exam Extremities Exam: absent: Pedal Edema - Neurological Exam Neurological Exam: Alert, Awake, Oriented x3 - Psychiatric Exam Psychiatric exam: Normal Affect, Normal Mood - Skin Skin Exam: Normal Color, Warm Assessment and Plan - Assessment and Plan (Free Text) Assessment: Hemoptysis Assessment & Plan: Pulmonary (Dr. Pedro) on board - help appreciated hematology-oncology (Dr. Tylor Koenig)-->will get in touch with patient's heme-onc, Dr Griggs - help appreciated Infectious Disease (Dr. Sanches)-->who sees patient as outpatient - help appreciated Etiologies: lung mass vs tuberculosis vs bronchiestasis Concern for tuberculosis given patient has hx of latent tuberculosis was on INH ; on immunosuppression for Rheumatoid arthritis therapy vs cancer given patient history of breast cancer On respiratory isolation, ordered for AFB X3; Negative x 1 per PMD's office, prior hx of PPD+ and Quantaferon positive on 06/21/16 HIV Screen Negative Influenza Negative Legionella Negative Procalcitonin 0.06 (low) blood culture (12/22) negative x 48 hours Sputum gram stain 12/23 shows few polymorphonuclear WBCs, no organisms seen F/U Sputum culture F/U mycoplasma pneumoniae Ab F/U fungus culture Status: Acute Lung mass Assessment & Plan: Pulmonary (Dr. Pedro) on board-->help appreciated CT Chest (12/22/16): no pulmonary embolism, Dominant mass with the right paraspinous position, measuring 2.5cm in greast dimension. Smaller satellite lesions are note within the left upper lobe. Mediastinal lymphadenopathy is also present Chest Xray (12/23/16): mild venous congestion. Prominent bibasilar breast shadows. Questionable patchy increased markings at the lung bases w question blunting of the left costophrenic angle which may represent a small pleural effusion. [facility] with [facility]; patient had a prior chest xray 06/30/16 which showed no acute cardiopulmonary pathology Duonebs 3ml INH RQ6 [facility] Will need CT guided biopsy Status: Acute Diarrhea Assessment & Plan: Likely secondary to omnipaque. Resolved Status: Acute Leukocytosis Assessment & Plan: Decreasing - 22 --> 18.1 --> 12.1, no left shift, no bands Blood cultures (12/22): negative x 48 hours Patient placed on respiratory isolation as preventive: patient with hx of breast cancer, hx of rheumatoid arthritis who is on immunosuppresive therapy, hx of latent tuberculosis Patient has been tapered of steroid for the past year Procalcitonin 0.06 (low) Status: Acute History of rheumatoid arthritis Assessment & Plan: Patient is on immunosuppresive therapy as outpatient; will need to follow-up with jumpbasting facing baster in hospital patient is off MTX. Patient has had tapering off prednisone over one year Status: Chronic Latent tuberculosis Assessment & Plan: History of +PPD and Quantaferon on 06/21/16 per discussion with office staff at [facility]. Patient put on Respiratory isolation. Given patient's hemotypsis and immunosuppression for treatment of RA, concern if this is active tuberculosis. Ordered for Sputum AFB X3 Patient was previously taking Isonazid. Patient sees Dr. Sanches ([facility]) as outpatient F/U Quantiferon TB Gold Status: Chronic Breast cancer Assessment & Plan: History of Breast Cancer Patient sees Dr. Griggs (heme-onc) as outpatient. Unclear what type of breast cancer or what the surveillance. CT Abd/Pelvis with PO and IV contrast 12/23/16 - mild bladder wall thickening; nonspecific finding, but can be seen with cystitis. no evidence of significant acute preocess. incidental indeterminate liver lesion in left lobe of 2cm. Possibly a hemangioma. Liver protocol CT recommended nonemergently. Patient will need to follow up outpatient for Liver protocol CT. Brain MRI with and withotu contrast 12/24/16 - mild age related degenerative changes are identified without definite acute intracranial findings. small chronic lacune is seen in the left frontal lobe and there is cavernoma notes at left thalamus. extensive mucosal inflammatory changes affecting the bilateral ethmoid air cells primarily and mildly affecting the remaing perineal sinuses providing a limited pansinutis pattern (please see full report) hematology-oncology (Dr. Tylor Koenig)-->will get in touch with patient's heme-onc, Dr Griggs - help appreciated Status: Chronic Prophylactic measure Assessment & Plan: Attempted to call PMD: Dr. Carreon; wont be available until Monday ([facility]) held chemical anticoagulation given patient comes in with hemotypsis Status: Acute <Ana Skaggs V - Last Filed: 12/25/16 17:16> Objective - Vital Signs/Intake and Output Vital Signs (last 24 hours): Temp Pulse Resp BP Pulse Ox 98.5 F 70 20 132/77 97 12/25/16 08:03 12/25/16 08:03 12/25/16 08:03 12/25/16 08:03 12/25/16 08:03 - Medications Medications: Current Medications Acetaminophen (Tylenol 325mg Tab) 650 mg PO Q6 PRN PRN Reason: Pain, moderate (4-7) Albuterol/Ipratropium (Duoneb 3 Mg/0.5 Mg (3 Ml) Ud) 3 ml INH RQ6 [facility] Last Admin: 12/25/16 14:08 Dose: 3 ml Fluticasone Propionate (Flonase) 1 spr MORENO BID [facility] Last Admin: 12/25/16 10:55 Dose: 1 spr Guaifenesin (Robitussin) 100 mg PO Q4H PRN PRN Reason: Cough Last Admin: 12/25/16 10:56 Dose: 100 mg Azithromycin 500 mg/ Sodium (Chloride) 250 mls @ 250 mls/hr IVPB DAILY [facility] Last Admin: 12/25/16 10:54 Dose: 250 mls/hr Ceftriaxone Sodium (Rocephin Iv 1 Gm Duplex) 50 mls @ 100 mls/hr IVPB DAILY [facility] Last Admin: 12/25/16 10:54 Dose: 100 mls/hr Isoniazid (Niazid) 300 mg PO DAILY [facility] Last Admin: 12/25/16 10:56 Dose: 300 mg Pantoprazole Sodium (Protonix Inj) 40 mg IVP DAILY [facility] Last Admin: 12/25/16 10:56 Dose: 40 mg Prednisone (Prednisone) 2.5 mg PO DAILY [facility] Last Admin: 12/25/16 10:56 Dose: 2.5 mg Prednisone (Prednisone Tab) 10 mg PO DAILY [facility] Last Admin: 12/25/16 10:56 Dose: 10 mg Pyridoxine HCl (Vitamin B6 50 Mg Tab) 50 mg PO DAILY [facility] Last Admin: 12/25/16 10:56 Dose: 50 mg Sodium Chloride ([place] Baby Saline 30 Ml) 0 ml MORENO Q6H [facility] Last Admin: 12/25/16 10:55 Dose: 1 drop - Labs Labs: 12/25/16 08:57 12/25/16 08:57 PT 11.6 SECONDS (9.7-12.2) 12/22/16 19:50 INR 1.0 12/22/16 19:50 APTT 27 SECONDS (21-34) 12/22/16 19:50 Assessment and Plan (1) Hemoptysis Status: Acute (2) Lung mass Status: Acute (3) History of rheumatoid arthritis Status: Acute (4) Latent tuberculosis Status: Acute (5) Breast cancer Status: Chronic (6) Leukocytosis Status: Acute (7) Prophylactic measure Status: Acute Attending/Attestation - Attestation I have personally seen and examined this patient.: Yes I have fully participated in the care of the patient.: Yes I have reviewed all pertinent clinical information, including history, physical exam and plan: Yes Notes (Text): Patient seen, examined, and case discussed with day-time resident. Patient seen at bedside with grand-daughter, Dafne at bedside. Patient permits to discuss medical information in front of the granddaughter. Patient denies headache, reports rhinorrhea, reports dry cough, denies episode of hemotypsis, denies abdominal pain, denies nausea, denies vomitting, denies constipation, denies diarrhea. Patient reports concerns for CT guided biopsy of lung mass due to prior experiences with lumpectomy and breast cancer workup in the past. Explained to her that the interventional radiologist will explain in regards to approach he/she will take to assess/sample the lung mass. Explained Brain MRI and CT abdomen/pelvis findings with the patient as well. Hepatitis negative. patient to NPO after midnight for CT guided lung biopsy. Assessment and Plan (1) Hemoptysis Assessment & Plan: * Etiologies: lung mass vs tuberculosis vs bronchiestasis * Concern for tuberculosis given patient has hx of latent tuberculosis was on INH; on immunosuppression for Rheumatoid arthritis therapy vs cancer given patient history of breast cancer * Pulmonary (Dr. Pedro) on board * hematology-oncology (Dr. Tylor Koenig)-->will get in touch with patient's heme-onc , Dr. Wayne * Refused tamoxifen when offered by prior heme-onc in the past * Infectious Disease (Dr. Sanches)-->who sees patient as outpatient * On respiratory isolation, ordered for AFB X3 Status: Acute (2) Lung mass Assessment & Plan: * Pulmonary (Dr. Pedro) on board-->help appreciated * Recommend for IR biopsy of lung mass * Order for CT guided lung biopsy of lung mass * I Spoke with [facility] on 12/23; patient had a prior chest xray 06/30/16 which showed no acute cardiopulmonary pathology * CT Chest (12/22/16): no pulmonary embolism, Dominant mass with the right paraspinous position, measuring 2.5cm in greast dimension. Smaller satellite lesions are note within the left upper love. Medistinal lymphadenopathy is also present * Chest Xray (12/23/16): mild venous congestion. Prominent bibasilar breast shadows. Questionable patchy increased makrings at the lung bases w question blunting of the left costophrenic angle which may represent a small pleural effusion. Status: Acute (3) History of rheumatoid arthritis Assessment & Plan: * Patient is on immunosuppresive therapy as outpatient; will need to follow-up with jumpbasting facing baster * in hospital patient is off MTX. Patient has had tapering off prednisone over one year * Prednisone 12.5mg PO daily Status: Chronic (4) Latent tuberculosis Assessment & Plan: History of +PPD and Quantaferon on 06/21/16 per discussion with office staff at [facility]. * Patient put on Respiratory isolation. Given patient's hemotypsis and immunosuppression for treatment of RA, concern if this is active tuberculosis. * Ordered for Sputum AFB X3 * Mycobacterium (12/23): no acid fast bacilli seen * Mycobacterium (12/24): no acid fast bacilli seen * Patient was previously taking Isonazid 300mg PO daily and Vitamin B6 50mg PO daily * Patient sees Dr. Sanches ([facility]) as outpatient for latent TB * Rocephin 1 gram IVPB q daily and Azithromycin 500mg IVPB daily (active since 12/23/16) Status: Chronic (5) Breast cancer Assessment & Plan: * Heme-onc (Dr. Tylor Koenig) on board-->help appreciated * History of Breast Cancer * Patient sees Dr. wayne (heme-onc) as outpatient once; and reports did not want to see afterwards. patient primarily seen by breast surgeon for survelliance given history of breast cancer. Unclear what type of breast cancer or what the surveillance. * Brain MRI: mid age related neuro degenerative changes are identified without definite acute intracranial findings. 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 Extensive mucosal inflammatory changes affect the bilateral ethomoid air cells primarily and mildly affects the remaining perineal sinuses providing a limited parsinusitis pattern * Ct Abdomen/pelvis (12/24/16): mild bladder wall thickening. This is a nonspecific finding, but can be seen with cystitis. Recommend clinical correlation. No evidence of significant acute process. Incidental indeterminate liver lesion. Extensive colonic diverticulosis. Status: Chronic (6) Leukocytosis Assessment & Plan: * Blood cultures (12/22): no growth after 48 hours X2 * Patient placed on respiratory isolation as preventive: patient with hx of breast cancer, hx of rheumatoid arthritis who is on immunosuppresive therapy, hx of latent tuberculosis * Patient has been tapered of steroid for the past year; currently on Prednsione 12.5mg PO daily * procalcitonin: low * HIV: neagtive * Influenza: negative * legionella: negative Status: Acute (7) Sinusitis Assessment & Plan: * Brain MRI: mid age related neuro degenerative changes are identified without definite acute intracranial findings. 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 Extensive mucosal inflammatory changes affect the bilateral ethomoid air cells primarily and mildly affects the remaining perineal sinuses providing a limited parsinusitis pattern * Flonase 1 MORENO BID * Saline nasal spray * Rocephin 1 gram IVPB q daily and Azithromycin 500mg IVPB daily (active since 12/23/16) Status: Acute (8) Prophylactic measure Assessment & Plan: * hold chemical anticoagulation secondary to hemotpysis; procedure tomorrow: Ct guided lung biospy * protonix 40mg IV q daily Status: Acute Disposition: * Pending 3rd AFB sputum * NPO after midnight for CT guided lung biopsy for lung mass
[2016-12-25 10:22] LABS: ALB/GLOB RATIO 1.4 (1.0-2.1); ALKALINE PHOSPHATASE 88 U/L (38-126); ALT/SGPT 40 U/L (9-52); AST/SGOT 35 U/L (14-36); BILIRUBIN,TOTAL 0.9 mg/dL (0.2-1.3); BLOOD UREA NITROGEN 16 mg/dL (7-17); CALCIUM 8.6 mg/dl (8.6-10.4); CARBON DIOXIDE 29 mmol/L (22-30); CHLORIDE 98 mmol/L (98-107); GFR AFRICAN-AMERICAN > 60; GLUCOSE,RANDOM 74 mg/dL (65-105); SODIUM 138 mmol/L (132-148); TOTAL PROTEIN 6.6 g/dL (6.3-8.3)
[2016-12-25] MEDS: cefTRIAXone IV 1 gm in Dextros 50 ML IVPB SCH (10:54)
[2016-12-25] MEDS: Azithromycin 500 MG in Sodium Chloride 0.9% 250 ML IVPB SCH (10:54)
[2016-12-25] MEDS: Sodium Chloride Nasal 0.65% Soln (30ml) NAS SCH ×3 (10:55→20:50)
[2016-12-25] MEDS: Fluticasone Nasal 50 mcg/Spray NAS SCH ×2 (10:55→17:07)
[2016-12-25] MEDS: guaiFENesin 100 mg/5 ml Syrup UD PO PRN ×2 (10:56→18:16)
--- NOTE | 2016-12-25 15:19 | CP.PCM.PN ---
Subjective - Date & Time of Evaluation Date of Evaluation: 12/25/16 Time of Evaluation: 09:00 - Subjective Subjective: events noted IV rx in progress cultures reviewed Objective - Vital Signs/Intake and Output Vital Signs (last 24 hours): Temp Pulse Resp BP Pulse Ox 98.5 F 70 20 132/77 97 12/25/16 08:03 12/25/16 08:03 12/25/16 08:03 12/25/16 08:03 12/25/16 08:03 - Medications Medications: Current Medications Acetaminophen (Tylenol 325mg Tab) 650 mg PO Q6 PRN PRN Reason: Pain, moderate (4-7) Albuterol/Ipratropium (Duoneb 3 Mg/0.5 Mg (3 Ml) Ud) 3 ml INH RQ6 [facility] Last Admin: 12/25/16 14:08 Dose: 3 ml Fluticasone Propionate (Flonase) 1 spr MORENO BID [facility] Last Admin: 12/25/16 10:55 Dose: 1 spr Guaifenesin (Robitussin) 100 mg PO Q4H PRN PRN Reason: Cough Last Admin: 12/25/16 10:56 Dose: 100 mg Heparin Sodium (Porcine) (Heparin) 5,000 units SC Q8 [facility] Last Admin: 12/25/16 14:03 Dose: 5,000 units Azithromycin 500 mg/ Sodium (Chloride) 250 mls @ 250 mls/hr IVPB DAILY [facility] Last Admin: 12/25/16 10:54 Dose: 250 mls/hr Ceftriaxone Sodium (Rocephin Iv 1 Gm Duplex) 50 mls @ 100 mls/hr IVPB DAILY [facility] Last Admin: 12/25/16 10:54 Dose: 100 mls/hr Isoniazid (Niazid) 300 mg PO DAILY [facility] Last Admin: 12/25/16 10:56 Dose: 300 mg Pantoprazole Sodium (Protonix Inj) 40 mg IVP DAILY [facility] Last Admin: 12/25/16 10:56 Dose: 40 mg Prednisone (Prednisone) 2.5 mg PO DAILY [facility] Last Admin: 12/25/16 10:56 Dose: 2.5 mg Prednisone (Prednisone Tab) 10 mg PO DAILY [facility] Last Admin: 12/25/16 10:56 Dose: 10 mg Pyridoxine HCl (Vitamin B6 50 Mg Tab) 50 mg PO DAILY [facility] Last Admin: 11/19/17 10:56 Dose: 50 mg Sodium Chloride ([place] Baby Saline 30 Ml) 0 ml MORENO Q6H [facility] Last Admin: 12/25/16 10:55 Dose: 1 drop - Labs Labs: 12/25/16 08:57 12/25/16 08:57 PT 11.6 SECONDS (9.7-12.2) 12/22/16 19:50 INR 1.0 12/22/16 19:50 APTT 27 SECONDS (21-34) 12/22/16 19:50 - Constitutional Appears: Non-toxic - Head Exam Head Exam: NORMOCEPHALIC - Eye Exam Eye Exam: PERRL - ENT Exam ENT Exam: Mucous Membranes Dry - Neck Exam Neck Exam: absent: Lymphadenopathy - Respiratory Exam Respiratory Exam: Decreased Breath Sounds - Cardiovascular Exam Cardiovascular Exam: REGULAR RHYTHM - GI/Abdominal Exam GI & Abdominal Exam: Distended, Soft - Rectal Exam Rectal Exam: Deferred - Exam Exam: NORMAL INSPECTION - Extremities Exam Extremities Exam: absent: Pedal Edema - Back Exam Back Exam: absent: CVA tenderness (L), CVA tenderness (R) - Neurological Exam Neurological Exam: Alert, Awake, Oriented x3 - Psychiatric Exam Psychiatric exam: Normal Mood - Skin Skin Exam: Dry Assessment and Plan (1) COPD with lower respiratory infection Status: Acute (2) Hemoptysis Status: Acute (3) History of rheumatoid arthritis Status: Acute (4) Latent tuberculosis Status: Acute (5) Leukocytosis Status: Acute (6) Lung mass Status: Acute (7) Breast cancer Status: Chronic
--- NOTE | 2016-12-25 16:51 | US ---
Abdominal ultrasound History: Liver lesion seen on CT scan. Comparison: CT scan dated 12/23/2016 Technique: Real-time sonography was performed through the abdomen. Findings: Liver: 14.1 centimeters in length. Increased echogenicity of the hepatic parenchymal cortex suggestive for fatty infiltration versus hepatic parenchymal disease. Clinical correlation. Previously identified 2 centimeter indeterminate lesion near the hepatic dome was not well imaged on the current study. This may be better evaluated with multiphasic CT or MR if clinically indicated. Gallbladder: No calculi or sludge. Normal wall thickness 1.7 millimeters. Negative sonographic Liu's sign. Common bile duct measures 3.5 millimeters, within normal limits. Limited visualization of the pancreas. Spleen measures 7.6 centimeters in length, within normal limits. Visualized IVC is preserved. Limited visualization of the aorta. Right kidney: 9.5 x 4.3 x 3.7 centimeters. No calculi or hydronephrosis. Left Kidney: 10.8 x 4.8 x 4.1 centimeters. No calculi or hydronephrosis. Impression: 1. 2 centimeter indeterminate enhancing lesion seen near the hepatic dome on the recent CT scan was not well appreciated on the ultrasound exam. Correlation with multiphasic CT or MR through the liver may be helpful for further characterization of this lesion if clinically indicated. 2. Increased echogenicity of the hepatic parenchymal cortex suggestive for fatty infiltration versus hepatic parenchymal disease. Clinical correlation. 3. Limited visualization of the pancreas and the aorta.
[2016-12-26] MEDS: Albuterol-Ipratrop 3 mg / 0.5 (3 ml) UD INH SCH ×4 (01:36→20:02)
[2016-12-26] MEDS: guaiFENesin 100 mg/5 ml Syrup UD PO PRN (03:26)
[2016-12-26] MEDS: Sodium Chloride Nasal 0.65% Soln (30ml) NAS SCH ×4 (03:26→21:29)
[2016-12-26 07:11] LABS: INR 0.9
[2016-12-26 07:17] LABS: BASO # 0.1 K/uL (0.0-0.2); BASO % 0.4 % (0.0-2.0); EOS # 0.3 K/uL (0.0-0.7); EOS % 2.3 % (0.0-4.0); HEMATOCRIT 41.2 % (34.0-47.0); LYMPH # 3.3 K/uL (1.0-4.3); LYMPH % 26.4 % (20.0-40.0); MEAN CELL VOLUME 93.7 fL (81.0-99.0); MEAN CORPUSCULAR HEMOGLOBIN 30.8 pg (27.0-31.0); MEAN CORPUSCULAR HGB CONC 32.9 g/dL (33.0-37.0); MEAN PLATELET VOLUME 8.1 fL (7.2-11.7); MONO # 1.1 K/uL (0.0-0.8); MONO % 8.7 % (0.0-10.0); NRBC % 0.1 % (0.0-2.0); RED CELL DISTRIBUTION WIDTH 16.4 % (11.5-14.5); WHITE BLOOD COUNT 12.5 K/uL (4.8-10.8)
[2016-12-26 07:36] LABS: ALB/GLOB RATIO 1.5 (1.0-2.1); ALKALINE PHOSPHATASE 71 U/L (38-126); ALT/SGPT 44 U/L (9-52); AST/SGOT 26 U/L (14-36); BILIRUBIN,TOTAL 0.7 mg/dL (0.2-1.3); BLOOD UREA NITROGEN 15 mg/dL (7-17); CALCIUM 8.6 mg/dl (8.6-10.4); CARBON DIOXIDE 28 mmol/L (22-30); CHLORIDE 101 mmol/L (98-107); GFR AFRICAN-AMERICAN > 60; GLUCOSE,RANDOM 79 mg/dL (65-105); MAGNESIUM 1.8 mg/dL (1.6-2.3); PHOSPHOROUS 4.4 mg/dL (2.5-4.5); POTASSIUM 3.7 mmol/L (3.6-5.2); SODIUM 137 mmol/L (132-148); TOTAL PROTEIN 5.7 g/dL (6.3-8.3)
--- NOTE | 2016-12-26 08:11 | CP.PCM.PN ---
Subjective - Date & Time of Evaluation Date of Evaluation: 12/26/16 Time of Evaluation: 07:00 - Subjective Subjective: Patient was seen and examined at bedside in the AM. Patient denies shortness of breath or chest pain. She states she is feeling anxious for the lung biopsy that she is suppose to have this morning but otherwise is feeling well and has no complaints at this time. Objective - Vital Signs/Intake and Output Vital Signs (last 24 hours): Temp Pulse Resp BP Pulse Ox 98.0 F 68 20 154/88 H 93 L 12/26/16 07:00 12/26/16 07:00 12/26/16 07:00 12/26/16 07:00 12/26/16 07:00 - Medications Medications: Current Medications Acetaminophen (Tylenol 325mg Tab) 650 mg PO Q6 PRN PRN Reason: Pain, moderate (4-7) Albuterol/Ipratropium (Duoneb 3 Mg/0.5 Mg (3 Ml) Ud) 3 ml INH RQ6 [facility] Last Admin: 12/26/16 07:46 Dose: 3 ml Fluticasone Propionate (Flonase) 1 spr MORENO BID [facility] Last Admin: 12/25/16 17:07 Dose: 1 spr Guaifenesin (Robitussin) 100 mg PO Q4H PRN PRN Reason: Cough Last Admin: 12/26/16 03:26 Dose: 100 mg Azithromycin 500 mg/ Sodium (Chloride) 250 mls @ 250 mls/hr IVPB DAILY [facility] Last Admin: 12/25/16 10:54 Dose: 250 mls/hr Ceftriaxone Sodium (Rocephin Iv 1 Gm Duplex) 50 mls @ 100 mls/hr IVPB DAILY [facility] Last Admin: 12/25/16 10:54 Dose: 100 mls/hr Isoniazid (Niazid) 300 mg PO DAILY [facility] Last Admin: 12/25/16 10:56 Dose: 300 mg Lorazepam (Ativan) 1 mg IVP ONCE PRN Stop: 12/26/16 22:00 Morphine Sulfate (Morphine) 2 mg IVP ONCE PRN Stop: 12/26/16 22:00 Pantoprazole Sodium (Protonix Inj) 40 mg IVP DAILY [facility] Last Admin: 12/25/16 10:56 Dose: 40 mg Prednisone (Prednisone) 2.5 mg PO DAILY [facility] Last Admin: 12/25/16 10:56 Dose: 2.5 mg Prednisone (Prednisone Tab) 10 mg PO DAILY [facility] Last Admin: 12/25/16 10:56 Dose: 10 mg Pyridoxine HCl (Vitamin B6 50 Mg Tab) 50 mg PO DAILY [facility] Last Admin: 12/25/16 10:56 Dose: 50 mg Saccharomyces Boulardii (Florastor) 250 mg PO BID [facility] Sodium Chloride ([place] Baby Saline 30 Ml) 0 ml MORENO Q6H [facility] Last Admin: 12/26/16 03:26 Dose: 2 drop - Labs Labs: 12/26/16 06:43 12/26/16 06:52 PT 10.2 SECONDS (9.7-12.2) 12/26/16 06:43 INR 0.9 12/26/16 06:43 APTT 27 SECONDS (21-34) 12/22/16 19:50 - Constitutional Appears: No Acute Distress - Head Exam Head Exam: ATRAUMATIC, NORMAL INSPECTION - Eye Exam Eye Exam: EOMI, Normal appearance - ENT Exam ENT Exam: Mucous Membranes Moist - Respiratory Exam Respiratory Exam: Clear to Ausculation Bilateral, NORMAL BREATHING PATTERN. absent: Rales, Rhonchi, Wheezes, Stridor - Cardiovascular Exam Cardiovascular Exam: REGULAR RHYTHM, RRR, +S1, +S2 - GI/Abdominal Exam GI & Abdominal Exam: Soft, Normal Bowel Sounds. absent: Tenderness - Extremities Exam Extremities Exam: Normal Inspection. absent: Pedal Edema, Tenderness - Neurological Exam Neurological Exam: Alert, Awake, Oriented x3 - Psychiatric Exam Psychiatric exam: Anxious - Skin Skin Exam: Normal Color, Warm Assessment and Plan - Assessment and Plan (Free Text) Assessment: 1.) Hemoptysis secondary to lung mass vs. TB Pulmonary Consult: Dr. Pedro --> help appreciated Hematology/Oncology: Dr. Koenig --> help appreciated Infectious Disease: Dr. Sanches --> help appreciated Concern for tuberculosis given patient has history of latent tuberculosis was on INH; on immuno-suppression for Rheumatoid arthritis therapy vs cancer given patient history of breast cancer - Per PMD's office, prior hx of PPD+ and Quantaferon positive on - Respiratory Isolation Discontinued - AFB Negative x3 - HIV Screen Negative; Influenza Negative; Legionella Negative - Procalcitonin 0.06 (low) - Blood culture (12/22) negative x 48 hours - Sputum gram stain 12/23 shows few polymorphonuclear WBCs, no organisms seen - Sputum culture: Negative - f/u mycoplasma pneumoniae Ab - f/u fungus culture - f/u repeat Chest X-ray 12/27/16 Medications: Active since 12/23/16 * Isoniazid 300mg PO daily * Pyridoxine 50mg PO daily * Rocephin 1 gram IVPB q daily * Azithromycin 500mg IVPB daily 2.) 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 Pedro -->help appreciated - CT Chest (12/22/16): no pulmonary embolism, Dominant mass with the right paraspinous position, measuring 2.5cm in greast dimension. Smaller satellite lesions are note within the left upper lobe. Mediastinal lymphadenopathy is also present - Chest Xray (12/23/16): mild venous congestion. Prominent bibasilar breast shadows. Questionable patchy increased markings at the lung bases w question blunting of the left costophrenic angle which may represent a small pleural effusion. Spoke with [facility] staff; patient had a prior chest xray 06/30/16 which showed no acute cardiopulmonary pathology - Duonebs 3ml INH RQ6 [facility] - Spoke with Dr. Fritz (Interventional Radiologist): States patient does not need a CT guided biopsy at this time. 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 Patient has had tapering off prednisone over one year - Prednisone 12.5mg PO daily 5.) History of Latent tuberculosis ID Consult: Dr. Sanches --> help appreciated History of +PPD and Quantaferon on 06/21/16 per discussion with office staff at [facility]. Patient was previously taking Isonazid. - F/U Quantiferon TB Gold 6.) History of Breast cancer Hematology/Oncology: Dr. Tylor Koenig --> help appreciated Patient sees Dr. Griggs (heme-onc) as outpatient. Unclear what type of breast cancer or what the surveillance. - CT Abd/Pelvis with PO and IV contrast (12/23/16) - mild bladder wall thickening; nonspecific finding, but can be seen with cystitis. no evidence of significant acute preocess. incidental indeterminate liver lesion in left lobe of 2cm. Possibly a hemangioma. Liver protocol CT recommended nonemergently. Patient will need to follow up outpatient for Liver protocol CT. - Abdominal Ultrasound (12/25/16): 1. 2 centimeter indeterminate enhancing lesion seen near the hepatic dome on the recent CT scan was not well appreciated on the ultrasound exam. Correlation with multiphasic CT or MR through the liver may be helpful for further characterization of this lesion if clinically indicated. 2. Increased echogenicity of the hepatic parenchymal cortex suggestive for fatty infiltration versus hepatic parenchymal disease. Clinical correlation. 3. Limited visualization of the pancreas and the aorta. 7.) Sinusitis - Brain MRI with and without contrast (12/24/16): mild age related degenerative changes are identified without definite acute intracranial findings. small chronic lacune is seen in the left frontal lobe and there is cavernoma notes at left thalamus. extensive mucosal inflammatory changes affecting the bilateral ethmoid air cells primarily and mildly affecting the remaing perineal sinuses providing a limited pansinutis pattern (please see full report) - Flonase 1 MORENO BID - Saline nasal spray 8.) Diarrhea Likely secondary to omnipaque - Resolved 9.) Prophylaxis - held chemical anticoagulation given patient comes in with hemotypsis - Protonix 40mg IV q daily - PT/OT Case discussed with Dr. Elinor Beltran PGY-1
[2016-12-26] MEDS: cefTRIAXone IV 1 gm in Dextros 50 ML IVPB SCH (09:54)
[2016-12-26] MEDS: Saccharomyces Boulardi 250 mg Cap PO SCH ×2 (09:54→19:28)
[2016-12-26] MEDS: Azithromycin 500 MG in Sodium Chloride 0.9% 250 ML IVPB SCH (09:55)
[2016-12-26] MEDS: Fluticasone Nasal 50 mcg/Spray NAS SCH ×2 (09:57→19:28)
--- NOTE | 2016-12-26 12:40 | CP.PCM.PN ---
Subjective - Date & Time of Evaluation Date of Evaluation: 12/26/16 Time of Evaluation: 09:00 - Subjective Subjective: iv rx renewed Objective - Vital Signs/Intake and Output Vital Signs (last 24 hours): Temp Pulse Resp BP Pulse Ox 98.0 F 68 20 154/88 H 93 L 12/26/16 07:00 12/26/16 07:00 12/26/16 07:00 12/26/16 07:00 12/26/16 07:00 - Medications Medications: Current Medications Acetaminophen (Tylenol 325mg Tab) 650 mg PO Q6 PRN PRN Reason: Pain, moderate (4-7) Albuterol/Ipratropium (Duoneb 3 Mg/0.5 Mg (3 Ml) Ud) 3 ml INH RQ6 [facility] Last Admin: 12/26/16 07:46 Dose: 3 ml Fluticasone Propionate (Flonase) 1 spr MORENO BID [facility] Last Admin: 12/26/16 09:57 Dose: 1 spr Guaifenesin (Robitussin) 100 mg PO Q4H PRN PRN Reason: Cough Last Admin: 12/26/16 03:26 Dose: 100 mg Azithromycin 500 mg/ Sodium (Chloride) 250 mls @ 250 mls/hr IVPB DAILY [facility] Last Admin: 12/26/16 09:55 Dose: 250 mls/hr Ceftriaxone Sodium (Rocephin Iv 1 Gm Duplex) 50 mls @ 100 mls/hr IVPB DAILY [facility] Last Admin: 12/26/16 09:54 Dose: 100 mls/hr Isoniazid (Niazid) 300 mg PO DAILY [facility] Last Admin: 12/26/16 09:54 Dose: Not Given Lorazepam (Ativan) 1 mg IVP ONCE PRN Stop: 12/26/16 22:00 Morphine Sulfate (Morphine) 2 mg IVP ONCE PRN Stop: 12/26/16 22:00 Pantoprazole Sodium (Protonix Inj) 40 mg IVP DAILY [facility] Last Admin: 12/26/16 09:56 Dose: Not Given Prednisone (Prednisone) 2.5 mg PO DAILY [facility] Last Admin: 12/26/16 09:54 Dose: Not Given Prednisone (Prednisone Tab) 10 mg PO DAILY [facility] Last Admin: 12/26/16 09:54 Dose: Not Given Pyridoxine HCl (Vitamin B6 50 Mg Tab) 50 mg PO DAILY [facility] Last Admin: 12/26/16 10:40 Dose: Not Given Saccharomyces Boulardii (Florastor) 250 mg PO BID [facility] Last Admin: 12/26/16 09:54 Dose: 250 mg Sodium Chloride ([place] Baby Saline 30 Ml) 0 ml MORENO Q6H [facility] Last Admin: 12/26/16 09:57 Dose: 1 drop - Labs Labs: 12/26/16 06:43 12/26/16 06:52 PT 10.2 SECONDS (9.7-12.2) 12/26/16 06:43 INR 0.9 12/26/16 06:43 APTT 27 SECONDS (21-34) 12/22/16 19:50 - Constitutional Appears: Non-toxic - Head Exam Head Exam: NORMOCEPHALIC - Eye Exam Eye Exam: PERRL - ENT Exam ENT Exam: Mucous Membranes Dry - Neck Exam Neck Exam: absent: Lymphadenopathy - Respiratory Exam Respiratory Exam: Decreased Breath Sounds - Cardiovascular Exam Cardiovascular Exam: REGULAR RHYTHM - GI/Abdominal Exam GI & Abdominal Exam: Distended Assessment and Plan (1) COPD with lower respiratory infection Status: Acute (2) Hemoptysis Status: Acute (3) History of rheumatoid arthritis Status: Acute (4) Latent tuberculosis Status: Acute (5) Leukocytosis Status: Acute (6) Lung mass Status: Acute (7) Breast cancer Status: Chronic
[2016-12-26 15:13] LABS: C. PNEUMONIAE IGM <1:10 (<1:10); C. PSITTACI IGM <1:10 (<1:10); C. TRACHOMATIS IGM <1:10 (<1:10)
[2016-12-26 16:53] LABS: C. PNEUMONIAE IGA <1:16 (<1:16); C. PSITTACI IGA <1:16 (<1:16); C. TRACHOMATIS IGA <1:16 (<1:16)
[2016-12-27 01:04] VITALS: RESP 20
[2016-12-27] MEDS: Albuterol-Ipratrop 3 mg / 0.5 (3 ml) UD INH SCH ×3 (02:12→13:02)
[2016-12-27] MEDS: Sodium Chloride Nasal 0.65% Soln (30ml) NAS SCH ×2 (02:52→10:20)
[2016-12-27 08:21] VITALS: BP 141/85; TEMP 97.5; O2SAT 95
--- NOTE | 2016-12-27 09:43 | CP.PCM.PN ---
Objective - Vital Signs/Intake and Output Vital Signs (last 24 hours): Temp Pulse Resp BP Pulse Ox 97.5 F L 69 20 141/85 95 12/27/16 08:19 12/27/16 08:19 12/27/16 08:19 12/27/16 08:19 12/27/16 08:19 Intake and Output: 12/27/16 12/27/16 06:59 18:59 Output Total 1600 Balance -1600 - Medications Medications: Current Medications Acetaminophen (Tylenol 325mg Tab) 650 mg PO Q6 PRN PRN Reason: Pain, moderate (4-7) Albuterol/Ipratropium (Duoneb 3 Mg/0.5 Mg (3 Ml) Ud) 3 ml INH RQ6 [facility] Last Admin: 12/27/16 08:01 Dose: 3 ml Fluticasone Propionate (Flonase) 1 spr MORENO BID [facility] Last Admin: 12/26/16 19:28 Dose: 1 spr Guaifenesin (Robitussin) 100 mg PO Q4H PRN PRN Reason: Cough Last Admin: 12/26/16 03:26 Dose: 100 mg Azithromycin 500 mg/ Sodium (Chloride) 250 mls @ 250 mls/hr IVPB DAILY [facility] Last Admin: 12/26/16 09:55 Dose: 250 mls/hr Ceftriaxone Sodium (Rocephin Iv 1 Gm Duplex) 50 mls @ 100 mls/hr IVPB DAILY [facility] Last Admin: 12/26/16 09:54 Dose: 100 mls/hr Isoniazid (Niazid) 300 mg PO DAILY [facility] Last Admin: 12/26/16 09:54 Dose: Not Given Pantoprazole Sodium (Protonix Inj) 40 mg IVP DAILY [facility] Last Admin: 12/26/16 09:56 Dose: Not Given Prednisone (Prednisone) 2.5 mg PO DAILY [facility] Last Admin: 12/26/16 09:54 Dose: Not Given Prednisone (Prednisone Tab) 10 mg PO DAILY [facility] Last Admin: 12/26/16 09:54 Dose: Not Given Pyridoxine HCl (Vitamin B6 50 Mg Tab) 50 mg PO DAILY [facility] Last Admin: 12/26/16 10:40 Dose: Not Given Saccharomyces Boulardii (Florastor) 250 mg PO BID [facility] Last Admin: 12/26/16 19:28 Dose: 250 mg Sodium Chloride ([place] Baby Saline 30 Ml) 0 ml MORENO Q6H [facility] Last Admin: 12/27/16 02:52 Dose: 2 drop - Labs Labs: 12/26/16 06:43 12/26/16 06:52 PT 10.2 SECONDS (9.7-12.2) 12/26/16 06:43 INR 0.9 12/26/16 06:43 APTT 27 SECONDS (21-34) 12/22/16 19:50
[2016-12-27 10:16] LABS: BASO # 0.1 K/uL (0.0-0.2); BASO % 0.6 % (0.0-2.0); EOS # 0.4 K/uL (0.0-0.7); HEMATOCRIT 43.6 % (34.0-47.0); LYMPH # 2.4 K/uL (1.0-4.3); LYMPH % 22.1 % (20.0-40.0); MEAN CELL VOLUME 93.8 fL (81.0-99.0); MEAN CORPUSCULAR HEMOGLOBIN 30.2 pg (27.0-31.0); MEAN CORPUSCULAR HGB CONC 32.2 g/dL (33.0-37.0); MEAN PLATELET VOLUME 8.4 fL (7.2-11.7); MONO # 0.7 K/uL (0.0-0.8); MONO % 6.6 % (0.0-10.0); NRBC % 0.1 % (0.0-2.0); RED CELL DISTRIBUTION WIDTH 16.6 % (11.5-14.5); WHITE BLOOD COUNT 10.9 K/uL (4.8-10.8)
[2016-12-27] MEDS: guaiFENesin 100 mg/5 ml Syrup UD PO PRN (10:18)
[2016-12-27] MEDS: Saccharomyces Boulardi 250 mg Cap PO SCH (10:19)
[2016-12-27] MEDS: cefTRIAXone IV 1 gm in Dextros 50 ML IVPB SCH (10:19)
[2016-12-27] MEDS: Azithromycin 500 MG in Sodium Chloride 0.9% 250 ML IVPB SCH (10:20)
[2016-12-27] MEDS: Fluticasone Nasal 50 mcg/Spray NAS SCH (10:20)
[2016-12-27 10:53] LABS: MAGNESIUM 1.7 mg/dL (1.6-2.3); PHOSPHOROUS 3.8 mg/dL (2.5-4.5)
[2016-12-27 11:10] LABS: ALB/GLOB RATIO 1.5 (1.0-2.1); ALKALINE PHOSPHATASE 77 U/L (38-126); ALT/SGPT 54 U/L (9-52); AST/SGOT 42 U/L (14-36); BILIRUBIN,TOTAL 0.9 mg/dL (0.2-1.3); BLOOD UREA NITROGEN 12 mg/dL (7-17); CALCIUM 8.5 mg/dl (8.6-10.4); CARBON DIOXIDE 27 mmol/L (22-30); CHLORIDE 100 mmol/L (98-107); GFR AFRICAN-AMERICAN > 60; GLUCOSE,RANDOM 83 mg/dL (65-105); POTASSIUM 3.7 mmol/L (3.6-5.2); SODIUM 135 mmol/L (132-148)
--- NOTE | 2016-12-27 11:13 | RAD ---
HISTORY: history of latent tb COMPARISON: 12/22/2016 chest x-ray. CT angio PE study 12/22/2016 FINDINGS: LUNGS: No consolidation. Perihilar bronchovascular markings probably top-normal. . PLEURA: No significant pleural effusion identified, no pneumothorax apparent. The current left costophrenic angle appears of less blunted than it did before. CARDIOVASCULAR: Top-normal heart size. Perihilar bronchovascular markings also top normal. OSSEOUS STRUCTURES: No significant abnormalities. VISUALIZED UPPER ABDOMEN: Normal. OTHER FINDINGS: Right breast implant IMPRESSION: No interval cardiopulmonary pathology noted. Comments: CT angio study findings are not appreciated on this less sensitive exam. Please note the prior CT report
--- NOTE | 2016-12-27 11:39 | CP.PCM.PN ---
Subjective - Date & Time of Evaluation Date of Evaluation: 12/27/16 Time of Evaluation: 08:00 - Subjective Subjective: bx on hold cultures neg AFB neg thus far Objective - Vital Signs/Intake and Output Vital Signs (last 24 hours): Temp Pulse Resp BP Pulse Ox 97.5 F L 69 20 141/85 95 12/27/16 08:19 12/27/16 08:19 12/27/16 08:19 12/27/16 08:19 12/27/16 08:19 Intake and Output: 12/27/16 12/27/16 06:59 18:59 Output Total 1600 Balance -1600 - Medications Medications: Current Medications Acetaminophen (Tylenol 325mg Tab) 650 mg PO Q6 PRN PRN Reason: Pain, moderate (4-7) Albuterol/Ipratropium (Duoneb 3 Mg/0.5 Mg (3 Ml) Ud) 3 ml INH RQ6 [facility] Last Admin: 12/27/16 08:01 Dose: 3 ml Fluticasone Propionate (Flonase) 1 spr MORENO BID [facility] Last Admin: 12/27/16 10:20 Dose: 1 spr Guaifenesin (Robitussin) 100 mg PO Q4H PRN PRN Reason: Cough Last Admin: 12/27/16 10:18 Dose: 100 mg Azithromycin 500 mg/ Sodium (Chloride) 250 mls @ 250 mls/hr IVPB DAILY [facility] Last Admin: 12/27/16 10:20 Dose: 250 mls/hr Ceftriaxone Sodium (Rocephin Iv 1 Gm Duplex) 50 mls @ 100 mls/hr IVPB DAILY [facility] Last Admin: 12/27/16 10:19 Dose: 100 mls/hr Isoniazid (Niazid) 300 mg PO DAILY [facility] Last Admin: 12/27/16 10:19 Dose: 300 mg Pantoprazole Sodium (Protonix Inj) 40 mg IVP DAILY [facility] Last Admin: 12/27/16 10:19 Dose: 40 mg Prednisone (Prednisone) 2.5 mg PO DAILY [facility] Last Admin: 12/27/16 10:18 Dose: 2.5 mg Prednisone (Prednisone Tab) 10 mg PO DAILY [facility] Last Admin: 12/27/16 10:19 Dose: 10 mg Pyridoxine HCl (Vitamin B6 50 Mg Tab) 50 mg PO DAILY [facility] Last Admin: 12/27/16 10:19 Dose: 50 mg Saccharomyces Boulardii (Florastor) 250 mg PO BID [facility] Last Admin: 12/27/16 10:19 Dose: 250 mg Sodium Chloride ([place] Baby Saline 30 Ml) 0 ml MORENO Q6H [facility] Last Admin: 12/27/16 10:20 Dose: 1 drop - Labs Labs: 12/27/16 10:11 12/27/16 10:11 PT 10.2 SECONDS (9.7-12.2) 12/26/16 06:43 INR 0.9 12/26/16 06:43 APTT 27 SECONDS (21-34) 12/22/16 19:50 - Constitutional Appears: Non-toxic, Chronically Ill - Head Exam Head Exam: NORMOCEPHALIC - Eye Exam Eye Exam: PERRL - ENT Exam ENT Exam: Mucous Membranes Dry - Neck Exam Neck Exam: absent: Lymphadenopathy - Respiratory Exam Respiratory Exam: Decreased Breath Sounds - Cardiovascular Exam Cardiovascular Exam: REGULAR RHYTHM - GI/Abdominal Exam GI & Abdominal Exam: Distended, Soft - Exam Exam: NORMAL INSPECTION - Extremities Exam Extremities Exam: absent: Pedal Edema - Back Exam Back Exam: absent: CVA tenderness (L), CVA tenderness (R) - Neurological Exam Neurological Exam: Alert, Awake, Oriented x3 - Psychiatric Exam Psychiatric exam: Depressed - Skin Skin Exam: Dry Assessment and Plan (1) COPD with lower respiratory infection Status: Acute (2) Hemoptysis Status: Acute (3) History of rheumatoid arthritis Status: Acute (4) Latent tuberculosis Status: Acute (5) Leukocytosis Status: Acute (6) Lung mass Status: Acute (7) Breast cancer Status: Chronic
[2016-12-27 12:31] VITALS: PULSE 90
--- NOTE | 2016-12-27 12:32 | CP.PCM.DIS ---
Provider - Provider Date of Admission: 12/22/16 21:29 Attending physician: James Aldrich MD Time Spent in preparation of Discharge (in minutes): 40 Hospital Course - Lab Results Lab Results: Micro Results 12/22/16 20:15 Blood Blood Culture - Preliminary NO GROWTH AFTER 4 DAYS 12/22/16 19:45 Blood Blood Culture - Preliminary NO GROWTH AFTER 4 DAYS 12/25/16 Unknown Other: Please Indicate Mycobacterial Culture - Preliminary 12/24/16 Unknown Other: Please Indicate Mycobacterial Culture - Preliminary 12/23/16 08:30 Sputum Gram Stain - Final 12/23/16 08:30 Sputum Sputum Culture - Final NORMAL ORAL CASANDRA 12/23/16 14:34 Other: Please Indicate Mycobacterial Culture - Preliminary 12/23/16 11:00 Nose MRSA Culture (Admit) - Final MRSA NOT DETECTED Most Recent Lab Values WBC 10.9 K/uL (4.8-10.8) H 12/27/16 10:11 RBC 4.65 Mil/uL (3.80-5.20) 12/27/16 10:11 Hgb 14.1 g/dL (11.0-16.0) 12/27/16 10:11 Hct 43.6 % (34.0-47.0) 12/27/16 10:11 MCV 93.8 fL (81.0-99.0) 12/27/16 10:11 MCH 30.2 pg (27.0-31.0) 12/27/16 10:11 MCHC 32.2 g/dL (33.0-37.0) L 12/27/16 10:11 RDW 16.6 % (11.5-14.5) H 12/27/16 10:11 Plt Count 259 K/uL (130-400) 12/27/16 10:11 MPV 8.4 fL (7.2-11.7) 12/27/16 10:11 Neut % (Auto) 66.7 % (50.0-75.0) 12/27/16 10:11 Lymph % (Auto) 22.1 % (20.0-40.0) 12/27/16 10:11 Fajardo % (Auto) 6.6 % (0.0-10.0) 12/27/16 10:11 Eos % (Auto) 4.0 % (0.0-4.0) 12/27/16 10:11 Baso % (Auto) 0.6 % (0.0-2.0) 12/27/16 10:11 Neut # 7.3 K/uL (1.8-7.0) H 12/27/16 10:11 Lymph # 2.4 K/uL (1.0-4.3) 12/27/16 10:11 Fajardo # 0.7 K/uL (0.0-0.8) 12/27/16 10:11 Eos # 0.4 K/uL (0.0-0.7) 12/27/16 10:11 Baso # 0.1 K/uL (0.0-0.2) 12/27/16 10:11 Neutrophils % (Manual) 96 % (50-75) H 12/23/16 04:18 Band Neutrophils % 1 % (0-2) 12/23/16 04:18 Lymphocytes % (Manual) 2 % (20-40) L 12/23/16 04:18 Monocytes % (Manual) 1 % (0-10) 12/23/16 04:18 Eosinophils % (Manual) 1 % (0-4) 12/22/16 19:50 Toxic Granulation Present 12/23/16 04:18 Platelet Estimate Normal (NORMAL) 12/23/16 04:18 Anisocytosis (manual) Slight 12/23/16 04:18 PT 10.2 SECONDS (9.7-12.2) 12/26/16 06:43 INR 0.9 12/26/16 06:43 APTT 27 SECONDS (21-34) 12/22/16 19:50 Sodium 135 mmol/L (132-148) 12/27/16 10:11 Potassium 3.7 mmol/L (3.6-5.2) 12/27/16 10:11 Chloride 100 mmol/L (98-107) 12/27/16 10:11 Carbon Dioxide 27 mmol/L (22-30) 12/27/16 10:11 Anion Gap 12 (10-20) 12/27/16 10:11 BUN 12 mg/dL (7-17) 12/27/16 10:11 Creatinine 0.9 mg/dL (0.7-1.2) 12/27/16 10:11 Est GFR ( Amer) > 60 12/27/16 10:11 Est GFR (Non-Af Amer) > 60 12/27/16 10:11 Random Glucose 83 mg/dL (65-105) 12/27/16 10:11 Hemoglobin A1c 6.3 % (4.2-6.5) 12/23/16 04:18 Calcium 8.5 mg/dl (8.6-10.4) L 12/27/16 10:11 Phosphorus 3.8 mg/dL (2.5-4.5) 12/27/16 10:11 Magnesium 1.7 mg/dL (1.6-2.3) 12/27/16 10:11 Total Bilirubin 0.9 mg/dL (0.2-1.3) 12/27/16 10:11 AST 42 U/L (14-36) H D 12/27/16 10:11 ALT 54 U/L (9-52) H D 12/27/16 10:11 Alkaline Phosphatase 77 U/L (38-126) 12/27/16 10:11 Troponin I < 0.0120 ng/mL (0.00-0.120) 12/22/16 19:50 NT-Pro-B Natriuret Pep 456 pg/mL (0-900) 12/22/16 19:50 Total Protein 6.0 g/dL (6.3-8.3) L 12/27/16 10:11 Albumin 3.6 g/dL (3.5-5.0) 12/27/16 10:11 Globulin 2.4 gm/dL (2.2-3.9) 12/27/16 10:11 Albumin/Globulin Ratio 1.5 (1.0-2.1) 12/27/16 10:11 CA 15-3 Antigen 15.2 U/mL (0-35) 12/24/16 06:27 Procalcitonin 0.06 NG/ML (0.19-0.49) L 12/23/16 13:38 Urine Color Straw (YELLOW) 12/22/16 20:25 Urine Clarity Clear (Clear) 12/22/16 20:25 Urine pH 6.0 (5.0-8.0) 12/22/16 20:25 Ur Specific Ennice 1.006 (1.003-1.030) 12/22/16 20:25 Urine Protein Negative mg/dL (NEGATIVE) 12/22/16 20:25 Urine Glucose (UA) Normal mg/dL (Normal) 12/22/16 20:25 Urine Ketones Negative mg/dL (NEGATIVE) 12/22/16 20:25 Urine Blood Negative (NEGATIVE) 12/22/16 20:25 Urine Nitrate Negative (NEGATIVE) 12/22/16 20:25 Urine Bilirubin Negative (NEGATIVE) 12/22/16 20:25 Urine Urobilinogen Normal mg/dL (0.2-1.0) 12/22/16 20:25 Ur Leukocyte Esterase Neg Joon/uL (Negative) 12/22/16 20:25 Urine WBC (Auto) 1 /hpf (0-5) 12/22/16 20:25 Urine RBC (Auto) 1 /hpf (0-3) 12/22/16 20:25 Ur Squamous Epith Cells 1 /hpf (0-5) 12/22/16 20:25 C. pneumoniae IgA Ab <1:16 (<1:16) 12/23/16 04:18 C. pneumoniae IgM Ab <1:10 (<1:10) 12/23/16 04:18 C. trachomatis IgA Ab <1:16 (<1:16) 12/23/16 04:18 C. trachomatis IgM Ab <1:10 (<1:10) 12/23/16 04:18 C. psittaci IgA Ab <1:16 (<1:16) 12/23/16 04:18 C. psittaci IgM Ab <1:10 (<1:10) 12/23/16 04:18 Hepatitis A IgM Ab Negative (NEGATIVE) 12/25/16 12:59 Hep Bs Antigen Negative (NEGATIVE) 12/25/16 12:59 Hep B Core IgM Ab Negative (NEGATIVE) 12/25/16 12:59 Hepatitis C Antibody Negative (NEGATIVE) 12/25/16 12:59 HIV 1&2 Antibody Screen Negative (NEGATIVE) 12/23/16 10:27 Influenza Typ A,B (EIA) Negative for flu a/b (NEGATIVE) 12/22/16 19:52 Ur L.pneumophila Ag Negative (NEGATIVE) 12/23/16 08:30 M.pneumoniae IgG Titer 2.18 (<=0.90) H 12/23/16 04:18 TB Test (QFT) Nil 0.03 IU/mL 12/23/16 10:27 TB Test Mitogen - Nil 4.52 IU/mL 12/23/16 10:27 TB Test TB - Nil 0.02 IU/mL 12/23/16 10:27 TB Test (QFT) Negative (Negative) 12/23/16 10:27 - Hospital Course Hospital Course: HPI: Patient is a 61 year old AA female, with PMHx of Rheumatoid arthritis, Latent TB , and right breast cancer with breast mastectomy, who presents to [facility] ED of productive cough/blood tinged sputum. Patient cough began one week ago, but became productive last night, when she had a coughing ft right before bed. She states she was producing a dark brown phlegm that had some streaks of blood in it. Patient reports she was able to go back to sleep again after the coughing fit but woke up today and had another fit this afternoon. She admits her chest feels tight and "sore" from all the coughing. She denies subjective fever, chills, night sweats, chest pain, palpitations, abdominal pain , nausea, vomiting, or diarrhea. She denies sick contacts or recent travel. Patient admits history of RA, diagnosed in 2015, for which she sees Dr. Warner. Patient states she has received three shots of RA medication Toclizumab that she self administers every 2 weeks. She also takes Methotrexate 2.5mg (4 pills weekly) which was reduced from 8 pills weekly within the last "two months." Pt also on prednisone 12.5mg (5 tabs x 2.5mg) for "over the past year," which also has been decreased. Her alemite operator told her goal was to just be on Tocluzimab going forward. Patient also admits positive PPD, Quantiferon for which her PMD, Dr. Carreon, started her on isonaizid/pyridoxine in July 2016. PMD: Velma Breast Surgeon: Tumblers Supervisor: Alana PMHx: Rheumatoid Arthritis ( DX 2015), Latent TB (Diagnosed in 2016), Breat Ca ( Diagnosed 2005) Lumpectomy (2007) with Mastectomy in (2011) PSHx: Lumpectomy (2007) with radiation, Mastectomy (2011) Fam Hx: denies SHx: Tobacco - ~3/4 ppd x 20 yrs (quit 2 years ago); admits social alcohol usage ; denies illicit drugs Meds: Tocilizumab injection q2 wks, Methotrexate 2.5 mg 4 tabs weekly, Prednisone 2.5 mg x 5 tabs daily (has been on for > 1 year, tapering down), Isonaizid 300mg PO daily, Pyridoxine 50mg PO Daily Hospital Course: Upon admission Chest X-Ray revealed mild venous congestion, prominent bi- basilar breast shadows, and questionable patchy increased markings at the lung bases with question blunting of the left costophrenic angle which may represent a small pleural effusion. Chest CT revealed dominant mass within the right paraspinous position, measuring 2.5cm in greatest dimension with smaller satellite lesions within the left upper lobe and mediastinal lymphadenopathy also present. 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 Abdomen and Pelvis CT with IV contrast revealed incidental indeterminate liver lesion. To follow up this finding, Abdominal Ultrasound was performed and revealed 2 cm indeterminate enhancing lesion seen near the hepatic dome not well appreciated as recent CT, increased echogenicity of the hepatic parenchymal cortex suggestive for fatty infiltration versus hepatic parenchymal disease, and limited visualization of the pancreas and the aorta. Infectious Disease was consulted and recommended continuation of IV antibiotics and series of cultures to rule out TB. Pulmonology and Hematology/Oncology were consulted and both recommended IR or CT guided biopsy of the mass in the lung to rule out malignancy. Patient was placed on temporary Airborne Precautions due to possible TB infection, awaiting sputum culture results. Patients RA medication methotrexate was discontinued temporarily while the patient was continuing IV antibiotic regime. Over the next few days and into the weekend, patient continued to produce a productive cough with white sputum production with no sign of blood. Patient also experienced some bouts of sinus pressure which was resolved. Yesterday sputum cultures were negative and patient was placed off of Airborne Precaution. Interventional Radiology had decided to hold off on the biopsy and recommended outpatient follow up to repeat a CT of the chest in 1-2 months. Patient stable for discharge home per Dr. Aldrich. Patient to continue new medications: Keflex 500mg three times per day for 7 days. Patient to continue home medications: Prednisone 10mg daily Isonaizid 300mg PO daily Pyridoxine 50mg PO Daily Patient to stop home medications until antibotic is complete: Tocilizumab and Methotrexate Patient to follow up with her Tumblers Supervisor Dr. Warner in one week. Patient to follow up with her PMD Dr. Carreon in one week. Patient to follow up with Physical Integration Practitioner Dr. Pedro within 1-2 weeks: [address] [place] [address] [phone] Patient to follow up with Hematology/Oncology Dr. Koenig within 1-2 weeks [address] [place] [address] [phone] Patient to return to the Emergency Room if symptoms return or progress. Discharge Exam - Head Exam Head Exam: NORMOCEPHALIC - Eye Exam Eye Exam: EOMI, Normal appearance - ENT Exam ENT Exam: Mucous Membranes Moist - Respiratory Exam Respiratory Exam: Clear to PA & Lateral, NORMAL BREATHING PATTERN - Cardiovascular Exam Cardiovascular Exam: REGULAR RHYTHM, RRR, +S1, +S2 - GI/Abdominal Exam GI & Abdominal Exam: Normal Bowel Sounds, Soft. absent: Tenderness - Extremities Exam Extremities exam: normal inspection - Neurological Exam Neurological exam: Alert, Oriented x3 - Psychiatric Exam Psychiatric exam: Normal Affect, Normal Mood - Skin Skin Exam: Normal Color, Warm Discharge Plan - Discharge Medications Prescriptions: Cephalexin [cephalexin] 500 mg PO TID 7 Days cap - Follow Up Plan Condition: GOOD Disposition: HOME/ ROUTINE Instructions: Cephalexin (By mouth), Lung Cancer (DC), COPD (Chronic Obstructive Pulmonary Disease) (DC), Hemoptysis (GEN), Leukocytosis (DC) Referrals: Vicente Pedro MD [Staff Provider] - Johny Koenig MD [Staff Provider] - James Carreon DO [Doctor Osteopathy] -
--- NOTE | 2016-12-27 13:48 | CP.PCM.PN ---
Subjective - Date & Time of Evaluation Date of Evaluation: 12/27/16 Time of Evaluation: 12:35 - Subjective Subjective: Feeling better Objective - Vital Signs/Intake and Output Vital Signs (last 24 hours): Temp Pulse Resp BP Pulse Ox 97.5 F L 90 20 141/85 95 12/27/16 08:19 12/27/16 10:00 12/27/16 08:19 12/27/16 08:19 12/27/16 08:19 Intake and Output: 12/27/16 12/27/16 06:59 18:59 Output Total 1600 Balance -1600 - Medications Medications: Current Medications Acetaminophen (Tylenol 325mg Tab) 650 mg PO Q6 PRN PRN Reason: Pain, moderate (4-7) Albuterol/Ipratropium (Duoneb 3 Mg/0.5 Mg (3 Ml) Ud) 3 ml INH RQ6 ON LICENSE OF [facility] Last Admin: 12/27/16 13:02 Dose: 3 ml Fluticasone Propionate (Flonase) 1 spr MORENO BID ON LICENSE OF [facility] Last Admin: 12/27/16 10:20 Dose: 1 spr Guaifenesin (Robitussin) 100 mg PO Q4H PRN PRN Reason: Cough Last Admin: 12/27/16 10:18 Dose: 100 mg Azithromycin 500 mg/ Sodium (Chloride) 250 mls @ 250 mls/hr IVPB DAILY ON LICENSE OF [facility] Last Admin: 12/27/16 10:20 Dose: 250 mls/hr Ceftriaxone Sodium (Rocephin Iv 1 Gm Duplex) 50 mls @ 100 mls/hr IVPB DAILY ON LICENSE OF [facility] Last Admin: 12/27/16 10:19 Dose: 100 mls/hr Isoniazid (Niazid) 300 mg PO DAILY EDMUNDO Last Admin: 12/27/16 10:19 Dose: 300 mg Pantoprazole Sodium (Protonix Inj) 40 mg IVP DAILY ON LICENSE OF [facility] Last Admin: 12/27/16 10:19 Dose: 40 mg Prednisone (Prednisone) 2.5 mg PO DAILY ON LICENSE OF [facility] Last Admin: 12/27/16 10:18 Dose: 2.5 mg Prednisone (Prednisone Tab) 10 mg PO DAILY ON LICENSE OF [facility] Last Admin: 12/27/16 10:19 Dose: 10 mg Pyridoxine HCl (Vitamin B6 50 Mg Tab) 50 mg PO DAILY ON LICENSE OF [facility] Last Admin: 12/27/16 10:19 Dose: 50 mg Saccharomyces Boulardii (Florastor) 250 mg PO BID ON LICENSE OF [facility] Last Admin: 12/27/16 10:19 Dose: 250 mg Sodium Chloride (Jackman Baby Saline 30 Ml) 0 ml MORENO Q6H ON LICENSE OF [facility] Last Admin: 12/27/16 10:20 Dose: 1 drop - Labs Labs: 12/27/16 10:11 12/27/16 10:11 PT 10.2 SECONDS (9.7-12.2) 12/26/16 06:43 INR 0.9 12/26/16 06:43 APTT 27 SECONDS (21-34) 12/22/16 19:50 - Head Exam Head Exam: ATRAUMATIC - Eye Exam Eye Exam: Normal appearance - ENT Exam ENT Exam: Mucous Membranes Dry - Respiratory Exam Respiratory Exam: NORMAL BREATHING PATTERN - Cardiovascular Exam Cardiovascular Exam: +S1, +S2 - GI/Abdominal Exam GI & Abdominal Exam: Normal Bowel Sounds Assessment and Plan (1) Lung mass Assessment & Plan: outpatient percutaneous biopsy Status: Acute (2) Leukocytosis Status: Acute (3) History of breast cancer Status: Acute
[2016-12-27 16:54] LABS: C. PSITTACI IGG <1:64 (<1:64); C. TRACHOMATIS IGG <1:64 (<1:64)
== END 2016-12-27 15:15 | disposition home or self-care (01) | DRG 204 ==
LOC: C.ER 18:49 → C.9E 21:29 → C.9I 12-23 06:24 → C.5S 12-24 12:12
PROVIDERS: ADMIT Internal Medicine; ATTEND Internal Medicine
DX: R04.2 Hemoptysis (principal); J44.0 Chronic obstructive pulmonary disease with (acute) lower respiratory infection; R76.11 Nonspecific reaction to tuberculin skin test without active tuberculosis; D72.829 Elevated white blood cell count, unspecified; R91.8 Other nonspecific abnormal finding of lung field; Z85.3 Personal history of malignant neoplasm of breast; M06.9 Rheumatoid arthritis, unspecified; R19.7 Diarrhea, unspecified; J32.2 Chronic ethmoidal sinusitis; Z87.891 Personal history of nicotine dependence; Z90.10 Acquired absence of unspecified breast and nipple; Z92.3 Personal history of irradiation; Z90.710 Acquired absence of both cervix and uterus; Z79.899 Other long term (current) drug therapy

== ENCOUNTER 2017-04-06 14:36 | Emergency (ER) | payer OTHER ==
[2017-04-06] MEDS ORDERED: DiphenhydrAMINE 50 mg/ml Inj IVP STA (16:36)
--- NOTE | 2017-04-06 16:38 | C.PDOC ---
History Of Present Illness <Diane Beltran - Last Filed: 04/06/17 18:59> <Adam Mata - Last Filed: 04/08/17 07:59> CC:" Allergy" HPI: 62 year old female with past medical history of rheumatoid arthritis, breast cancer and asthma presents to the ED for an allergic reaction. Patient states she has been taking Actemra Injection since November of 2016. Her last injection was 03/30/17. She states prior to this injection she had an allergic reaction to the shot on 03/17/17 and she went to see Dr. Amos and was given eye drops and antibiotics. However for about 2 weeks now her symptoms have returned. She states her hands are swollen and her feet. She states she also has rashes on her hands, ears and her eyes have discharge and itching. She denies fever, shortness of breath, chest pain, nausea or vomiting. PMD: Dr. Amos Logistics Intern: Dr. Geotz Past Medical History: Rheumatoid Arthritis and Asthma and Breast Cancer Past Surgical History: Right breast mastectomy 2012; left breast reduction Allergies: Penicillin - rash Medications: Prednisone 2.5mg daily; Folic Acid 1mg daily; Isoniazid 300mg daily ; Vitamin B6 50mg daily; Anoro Ellipta 62.5mcg/25mcg daily; Proair 2 sprays when needed (Diane Beltran) <Diane Beltran - Last Filed: 04/06/17 18:59> <Adam Mata - Last Filed: 04/08/17 07:59> Time Seen by Provider: 04/06/17 16:04 Chief Complaint (Nursing): Allergic Reaction Past Medical History - Medical History PMH: COPD, Rheumatoid Arthritis Denies: Chronic Kidney Disease Family History: States: Unknown Family Hx - Social History Hx Tobacco Use: Yes Hx Alcohol Use: No Hx Substance Use: No - Immunization History Hx Tetanus Toxoid Vaccination: No Hx Influenza Vaccination: Yes Hx Pneumococcal Vaccination: No <Diane Beltran - Last Filed: 04/06/17 18:59> Vital Signs: Last Vital Signs Temp 97.9 F 04/06/17 19:20 Pulse 77 04/06/17 19:20 Resp 18 04/06/17 19:20 BP 149/90 04/06/17 19:20 Pulse Ox 96 04/06/17 19:20 Review Of Systems Constitutional: Negative for: Fever, Chills Eyes: Positive for: Pain, Eyelid Inflammation, Redness, Other (eye discharge) Cardiovascular: Negative for: Chest Pain, Palpitations Respiratory: Negative for: Cough, Shortness of Breath Gastrointestinal: Negative for: Nausea, Vomiting, Abdominal Pain, Diarrhea, Constipation Genitourinary: Negative for: Dysuria Skin: Positive for: Rash <Diane Beltran - Last Filed: 04/06/17 18:59> Physical Exam - Physical Exam Appears: Toxic Skin: Rash (right ear; and left hand ) Eye(s): bilateral: Other (bilateral eye tenderness; bilateral eye swelling, bilateral eye discharge; Left and Right eye: 20/40 with eye glasses) Oral Mucosa: Moist Throat: Normal, No Erythema, No Exudate Cardiovascular: Rhythm Regular, No Rhythm Irregular, No Murmur Respiratory: Normal Breath Sounds, No Decreased Breath Sounds, No Accessory Muscle Use, No Wheezing Gastrointestinal/Abdominal: Normal Exam, Bowel Sounds (soft), Soft, No Tenderness Extremity: No Tenderness, No Pedal Edema, No Calf Tenderness, Swelling ( bilateral hand swelling ) Neurological/Psych: Oriented x3, Normal Speech, Normal Cognition <Diane Beltran - Last Filed: 04/06/17 18:59> ED Course And Treatment - Laboratory Results Result Diagrams: 04/06/17 16:58 04/06/17 16:58 ECG Rhythm: Sinus Rhythm O2 Sat by Pulse Oximetry: 98 - Radiology CXR Interpretation: Yes: No Acute Disease <Diane Beltran - Last Filed: 04/06/17 18:59> - Laboratory Results Result Diagrams: 04/06/17 16:58 04/06/17 16:58 <Adam Mata M - Last Filed: 04/08/17 07:59> Medical Decision Making <Diane Beltran - Last Filed: 04/06/17 18:59> <Aadm Mata - Last Filed: 04/08/17 07:59> Medical Decision Making: Adverse Reaction to Actemra Injection - WBC 7.5; H/H 13.5/40.4 - CMP: WNL - Patient given Keflex 500mg once; Bendryl 25mg IV; Solu-Medrol 125mg IV; Tobrex OU Discussed with patient to follow up with Dr. Goetz for RA medications. (Diane Beltran) patient eyes with periorbital irritation, no proptosis, conjunctiva injected, perrla, eomi, normal fundoscopic examination, exam consistent withy allergic reaction. (Adam Mata) Disposition Discussed With Dr.: Adam Mata Doctor Will See Patient In The: ED <Diane Beltran - Last Filed: 04/06/17 18:59> Counseled Patient/Family Regarding: Studies Performed, Diagnosis, Need For Followup, Rx Given - Disposition Disposition Time: 18:22 <Aadm Mata - Last Filed: 04/08/17 07:59> - Disposition Referrals: [facility] [Outside] [facility] [Outside] Disposition: HOME/ ROUTINE Condition: STABLE Additional Instructions: follow up with your doctor in 2 days call to make an appointment take medications as prescribed return to ER if symptoms worsens or progress Prescriptions: Acetaminophen/Codeine [Tylenol/Codeine 300 MG/30 MG] 1 tab PO Q6H PRN #12 tab PRN Reason: Pain, Severe (8-10) DiphenhydrAMINE [Benadryl] 25 mg PO QID PRN #20 cap PRN Reason: Itching / Pruritus Loratadine [Claritin] 10 mg PO DAILY PRN #15 tab PRN Reason: Other predniSONE [predniSONE Tab] 50 mg PO DAILY #4 tab Sulfamethoxazole/Trimethoprim [Bactrim DS 800 mg-160 mg] 1 tab PO BID #14 tab Tobramycin 0.3% [Tobrex 0.3% Ophth Soln] 1 drop OU QID #1 bottle Instructions: Skin Rash, Conjunctivitis (Pinkeye), Side Effects From Medicines Forms: General Discharge Instructions, [facility] (Belarusian) - Clinical Impression Clinical Impression: Allergic urticaria, Conjunctivitis - PA / [place] / Resident Statement MD/DO has reviewed & agrees with the documentation as recorded. MD/DO has examined the patient and agrees with the treatment plan. <Diane Beltran - Last Filed: 04/06/17 18:59>
[2017-04-06 17:00] LABS: EOS # 0.4 K/uL (0.0-0.7); MONO # 0.6 K/uL (0.0-0.8); NEUT # 4.3 K/uL (1.8-7.0)
[2017-04-06] MEDS ORDERED: DiphenhydrAMINE 50 mg/ml Inj ONE (17:03)
[2017-04-06 17:05] LABS: BASO % 0.7 % (0.0-2.0); EOS % 5.8 % (0.0-4.0); HEMOGLOBIN 13.5 g/dL (11.0-16.0); LYMPH # 2.2 K/uL (1.0-4.3); LYMPH % 29.2 % (20.0-40.0); MEAN CELL VOLUME 90.9 fL (81.0-99.0); MEAN CORPUSCULAR HEMOGLOBIN 30.4 pg (27.0-31.0); MEAN CORPUSCULAR HGB CONC 33.4 g/dL (33.0-37.0); MEAN PLATELET VOLUME 7.7 fL (7.2-11.7); MONO % 7.5 % (0.0-10.0); NEUT % 56.8 % (50.0-75.0); RBC 4.44 Mil/uL (3.80-5.20); RED CELL DISTRIBUTION WIDTH 14.6 % (11.5-14.5); WHITE BLOOD COUNT 7.5 K/uL (4.8-10.8)
[2017-04-06 17:13] LABS: ALB/GLOB RATIO 1.2 (1.0-2.1); ALBUMIN 3.7 g/dL (3.5-5.0); ALT/SGPT 34 U/L (9-52); AST/SGOT 32 U/L (14-36); BLOOD UREA NITROGEN 15 mg/dL (7-17); CALCIUM 8.9 mg/dl (8.6-10.4); GFR AFRICAN-AMERICAN > 60; GFR NON-AFRICAN AMERICAN > 60
[2017-04-06] MEDS ORDERED: Tobramycin 0.3% OPHT SOLN OU STA (17:59)
[2017-04-06] MEDS ORDERED: Acetaminophen-Codeine 300/30 mg Tab PO STA (18:15)
[2017-04-06] MEDS ORDERED: Acetaminophen-Codeine 300/30 mg Tab PO ONE (18:46)
[2017-04-06 19:21] VITALS: BP 149/90; PULSE 77; RESP 18; TEMP 97.9; O2SAT 96
--- NOTE | 2017-04-07 07:42 | RAD ---
Chest x-ray single frontal view History: Asthma. Comparison: 12/22/2016 Findings: Biapical pleural thickening. Moderate venous congestion. Right hilar prominence. Bibasilar airspace opacities. Trace bilateral pleural effusions. Bibasilar breast and nipple shadows. Tortuous aorta. Heart size within normal limits. Degenerative changes in the spine. Impression: Biapical pleural thickening. Moderate venous congestion. Right hilar prominence. Bibasilar airspace opacities. Trace bilateral pleural effusions.
--- NOTE | 2017-04-08 09:02 | CARD ---
APPROVED REPORT EKG Measurement Heart [id number] <Conclusion> Normal sinus rhythm Cannot rule out Inferior infarct, age undetermined T wave abnormality, consider lateral ischemia Abnormal ECG
== END 2017-04-06 19:23 | disposition home or self-care (01) ==
LOC: C.ER 14:36
DX: L50.0 Allergic urticaria (principal); H10.9 Unspecified conjunctivitis
CPT/HCPCS: 71045; 80053; 85025; 93005; 96374; 96375; 99284; J1200; J2930

== ENCOUNTER 2018-06-04 09:31 | Outpatient (CLI) | payer MEDICARE, SELFPAY | END 2018-06-04 09:32 | disposition home or self-care (01) | LOC: C.LAB 09:31 | DX: M06.9 Rheumatoid arthritis, unspecified (principal); E55.9 Vitamin D deficiency, unspecified ==